=== PATIENT | male | born 1950 | race Asian ===

== ENCOUNTER 2016-06-29 10:50 | Emergency (ER) | payer MEDICARE, OTHER ==
[~2016-06-29] VITALS: Ht 162.6 cm; Wt 63.6 kg
[~2016-06-29 10:50] MED LIST: ALLO100T PO; ASPI81 PO; FERR-89 PO; HYDR-3965 PO; INSU100V12 SQ; LOSA50TA37 PO; SIMV-259 PO
[2016-06-29 11:05] LABS: GLUCOSE,POINT OF CARE 83 MG/DL (70-110)
[2016-06-29 12:51] LABS: EOSINOPHILS % (AUTO) 5.8 % (1.0-6.0); HEMATOCRIT 29.3 % (41-53); HEMOGLOBIN 9.7 g/dL (13.5-17.5); LYMPHOCYTES # (AUTO) 1.4 K/uL (1.0-4.8); LYMPHOCYTES % (AUTO) 21.6 % (22.0-44.0); MEAN CORPUSCULAR HEMOGLOBIN 31.4 pg (26.0-34.0); MEAN CORPUSCULAR VOLUME 95 fL (80-100); MONOCYTES # (AUTO) 0.6 K/uL (0.1-1.0); MONOCYTES % (AUTO) 9.1 % (2.0-9.0); NEUTROPHILS # (AUTO) 4.1 K/uL (1.8-7.7); NEUTROPHILS % (AUTO) 62.5 % (40.0-70.0); PLATELET COUNT (AUTO) 341 K/uL (150-450); RED BLOOD CELL COUNT(AUTO) 3.09 MIL/uL (4.50-5.90); RED CELL DISTRIBUTION WIDTH 14.5 % (11.5-14.5); WHITE BLOOD COUNT (AUTO) 6.5 K/uL (4.5-11.0)
[2016-06-29 13:01] LABS: CALCIUM, TOTAL 9.3 mg/dL (8.8-10.5); POTASSIUM 4.6 mmol/L (3.5-5.1)
[2016-06-29 13:07] LABS: ALBUMIN 3.3 g/dL (3.4-5.0); BILIRUBIN,TOTAL 0.2 mg/dL (0.1-1.0); TOTAL PROTEIN, SERUM 7.5 g/dL (6.4-8.2)
[2016-06-29] MEDS ORDERED: SODIUM CHLORIDE 0.9% 1,000 ML IV ONE (13:45)
[2016-06-29] MEDS ORDERED: SODIUM CHLORIDE 0.9% 500 ML IV ONE (14:00)
[2016-06-29 14:45] VITALS: BP 131/71
== END 2016-06-29 15:47 | disposition home or self-care (01) ==
LOC: EMS 10:51
DX: J40 Bronchitis, not specified as acute or chronic (principal); E11.9 Type 2 diabetes mellitus without complications; E78.00 Pure hypercholesterolemia, unspecified; I10 Essential (primary) hypertension; Z79.82 Long term (current) use of aspirin
CPT/HCPCS: 36415; 71020; 80053; 82962; 84484; 85025; 93005; 96360; 99285; J7030

== ENCOUNTER 2016-09-25 12:24 | Emergency (ER) | payer OTHER ==
[~2016-09-25] VITALS: Ht 162.6 cm; Wt 63.5 kg
[~2016-09-25 12:24] MED LIST changes: -FERR-89 PO; -HYDR-3965 PO; -SIMV-259 PO; +SIMV10 PO
[2016-09-25 12:42] LABS: GLUCOSE,POINT OF CARE 220 MG/DL (70-110)
[2016-09-25 18:23] VITALS: BP 145/77
== END 2016-09-25 18:28 | disposition home or self-care (01) ==
LOC: EMS 12:32
DX: M76.61 Achilles tendinitis, right leg (principal); E11.9 Type 2 diabetes mellitus without complications; E78.00 Pure hypercholesterolemia, unspecified; I10 Essential (primary) hypertension
CPT/HCPCS: 29540; 82962; 99284

== ENCOUNTER 2018-05-10 08:13 | Emergency (ER) | payer MEDICARE, OTHER ==
[~2018-05-10] VITALS: Ht 162.6 cm; Wt 70.0 kg
[~2018-05-10 08:13] MED LIST changes: -LOSA50TA37 PO; +LOSA50TA64 PO; +SIMV-259 PO; -SIMV10 PO
[2018-05-10 08:34] LABS: GLUCOSE,POINT OF CARE 127 MG/DL (70-110)
[2018-05-10] MEDS: ASPIRIN 81 MG CHEWABLE TABLET PO ONE (08:36)
[2018-05-10] MEDS: NITROGLYCERIN 2% (1 GM=INCH) PACKET TP ONE (08:36)
[2018-05-10 09:24] LABS: BASOPHILS % (AUTO) 0.2 % (0.0-2.0); EOSINOPHILS % (AUTO) 1.2 % (1.0-6.0); HEMATOCRIT 33.2 % (41-53); HEMOGLOBIN 11.3 g/dL (13.5-17.5); LYMPHOCYTES # (AUTO) 0.6 K/uL (1.0-4.8); LYMPHOCYTES % (AUTO) 8.1 % (22.0-44.0); MEAN CORPUSCULAR HEMOGLOBIN 32.7 pg (26.0-34.0); MEAN CORPUSCULAR VOLUME 96 fL (80-100); MONOCYTES # (AUTO) 0.7 K/uL (0.1-1.0); MONOCYTES % (AUTO) 9.5 % (2.0-9.0); NEUTROPHILS # (AUTO) 6.2 K/uL (1.8-7.7); PLATELET COUNT (AUTO) 229 K/uL (150-450); RED BLOOD CELL COUNT(AUTO) 3.46 MIL/uL (4.50-5.90); RED CELL DISTRIBUTION WIDTH 14.6 % (11.5-14.5)
[2018-05-10 09:33] LABS: CALCIUM, TOTAL 8.9 mg/dL (8.8-10.5); CREATININE 10.16 mg/dL (0.60-1.30); POTASSIUM 4.4 mmol/L (3.5-5.1)
[2018-05-10 09:57] LABS: ALBUMIN 2.3 g/dL (3.4-5.0); BILIRUBIN,TOTAL 0.4 mg/dL (0.1-1.0); TOTAL PROTEIN, SERUM 6.7 g/dL (6.4-8.2)
[2018-05-10 13:13] VITALS: BP 148/62
== END 2018-05-10 15:25 | disposition home or self-care (01) ==
LOC: EMS 08:14
DX: I47.1 Supraventricular tachycardia (principal); I12.0 Hypertensive chronic kidney disease with stage 5 chronic kidney disease or end stage renal disease; E11.22 Type 2 diabetes mellitus with diabetic chronic kidney disease; N18.6 End stage renal disease; E78.00 Pure hypercholesterolemia, unspecified; Z99.2 Dependence on renal dialysis; Z79.4 Long term (current) use of insulin; Z87.891 Personal history of nicotine dependence; Z79.82 Long term (current) use of aspirin
CPT/HCPCS: 82948; 93005; 99291

== ENCOUNTER 2019-01-07 10:04 | Inpatient (IN) | payer MEDICARE, OTHER ==
[~2019-01-07] VITALS: Ht 162.6 cm; Wt 57.6 kg
[2019-01-07] MEDS ORDERED: ISOS20TA7 PO (10:20)
[2019-01-07 10:29] LABS: GLUCOSE,POINT OF CARE 161 MG/DL (70-110)
[2019-01-07 11:14] LABS: BASOPHILS % (AUTO) 0.4 % (0.0-2.0); EOSINOPHILS % (AUTO) 31.5 % (1.0-6.0); HEMATOCRIT 29.6 % (41-53); HEMOGLOBIN 9.8 g/dL (13.5-17.5); LYMPHOCYTES # (AUTO) 0.7 K/uL (1.0-4.8); LYMPHOCYTES % (AUTO) 11.3 % (22.0-44.0); MEAN CORPUSCULAR HEMOGLOBIN 32.7 pg (26.0-34.0); MEAN CORPUSCULAR VOLUME 99 fL (80-100); MONOCYTES # (AUTO) 0.5 K/uL (0.1-1.0); MONOCYTES % (AUTO) 7.6 % (2.0-9.0); NEUTROPHILS # (AUTO) 3.1 K/uL (1.8-7.7); NEUTROPHILS % (AUTO) 49.2 % (40.0-70.0); RED CELL DISTRIBUTION WIDTH 18.7 % (11.5-14.5)
[2019-01-07 11:23] LABS: CALCIUM, TOTAL 8.4 mg/dL (8.8-10.5); CREATININE 6.2 mg/dL (0.60-1.30); POTASSIUM 4.6 mmol/L (3.5-5.1)
[2019-01-07 11:29] LABS: BILIRUBIN,TOTAL 0.7 mg/dL (0.1-1.0); TOTAL PROTEIN, SERUM 7.7 g/dL (6.4-8.2)
[2019-01-07 11:33] LABS: INR 1.1 (0.9-1.1); PROTHROMBIN TIME 11.1 SEC (9.4-11.6)
[2019-01-07 11:46] LABS: PLATELET COUNT (AUTO) 95 K/uL (150-450)
[2019-01-07] MEDS ORDERED: IOVERSOL 350 MG/ML 100 ML VIAL ONE (12:35)
[2019-01-07] MEDS ORDERED: ISOS30TA6 PO (12:44)
[2019-01-07] MEDS ORDERED: ATOR20TA65 PO (12:44)
[2019-01-07] MEDS ORDERED: INSLAN SQ (12:44)
[2019-01-07] MEDS ORDERED: ACETAMINOPHEN 325 MG TABLET PO PRN ×2 (12:45→17:45)
[2019-01-07] MEDS ORDERED: 0.9% SODIUM CHLORIDE 10 ML SYRINGE IVP PRN (12:45)
[2019-01-07] MEDS ORDERED: ONDANSETRON HCL 4 MG/2 ML VIAL IVP PRN ×2 (12:45→17:45)
[2019-01-07 14:52] VITALS: BP 190/75
[2019-01-07] MEDS ORDERED: ISOSORBIDE MONONITRATE 60 MG ER TABLET PO SCH (15:30)
[2019-01-07] MEDS ORDERED: LOSARTAN POTASSIUM 50 MG TABLET PO SCH (15:30)
[2019-01-07 15:52] VITALS: BP 167/81
[2019-01-07] MEDS ORDERED: ZOLPIDEM TARTRATE 5 MG TABLET PO PRN (17:45)
[2019-01-07] MEDS ORDERED: INSULIN GLARGINE,HUM.REC.ANLOG 100 UNITS/ML SQ SCH (17:45)
[2019-01-07] MEDS ORDERED: ALBUTEROL SULFATE 2.5 MG/0.5 ML NEB SOLUTION NEB PRN (17:45)
[2019-01-07] MEDS ORDERED: IPRATROPIUM BROMIDE 0.5 MG/2.5 ML NEB SOLUTION NEB PRN (17:45)
[2019-01-07] MEDS: MINERAL OIL/PETROLATUM 120 GM CREAM TP SCH (17:45)
[2019-01-07] MEDS: PANTOPRAZOLE SODIUM 40 MG DR TABLET PO SCH (18:32)
[2019-01-07] MEDS: BENZONATATE 100 MG CAPSULE PO SCH (18:32)
[2019-01-07] MEDS: INSULIN GLARGINE,HUM.REC.ANLOG 100 UNITS/ML SQ SCH (18:33)
[2019-01-07] MEDS: HYDROCODONE/CHLORPHEN POLIS 10-8 MG/5 ML ORAL.SYG PO PRN (18:57)
[2019-01-07 19:29] VITALS: BP 172/70
[2019-01-07] MEDS: HEPARIN SODIUM,PORCINE 5,000 UNITS/ML VIAL SQ SCH (20:55)
[2019-01-07] MEDS: DOCUSATE SODIUM 250 MG CAPSULE PO SCH (20:56)
[2019-01-07] MEDS: ATORVASTATIN CALCIUM 20 MG TABLET PO SCH (20:56)
[2019-01-07] MEDS: 0.9% SODIUM CHLORIDE 10 ML SYRINGE IVP PRN (20:58)
[2019-01-07] MEDS ORDERED: ATORVASTATIN CALCIUM 20 MG TABLET PO SCH (21:00)
[2019-01-07] MEDS: LOSARTAN POTASSIUM 50 MG TABLET PO SCH (21:00)
[2019-01-07 22:35] LABS: GLUCOMETER DEV NAME(LOC) 5N.2; GLUCOSE,POINT OF CARE 140 MG/DL (70-110)
[2019-01-07 22:35] LABS: GLUCOMETER DEV NAME(LOC) 5N.2; GLUCOSE,POINT OF CARE 139 MG/DL (70-110)
[2019-01-07 23:47] VITALS: BP 150/73
[2019-01-08] MEDS: MINERAL OIL/PETROLATUM 120 GM CREAM TP SCH ×4 (00:42→22:58)
[2019-01-08] MEDS: BENZONATATE 100 MG CAPSULE PO SCH ×4 (00:42→22:59)
[2019-01-08] MEDS: DEXTROSE 50%-WATER 25 GM/50 ML SYRINGE IVP PRN (01:17)
[2019-01-08] MEDS: 0.9% SODIUM CHLORIDE 10 ML SYRINGE IVP PRN (01:18)
[2019-01-08 04:28] VITALS: BP 173/71
[2019-01-08] MEDS: PANTOPRAZOLE SODIUM 40 MG DR TABLET PO SCH (06:06)
[2019-01-08 07:35] VITALS: BP 148/56
[2019-01-08] MEDS: ASPIRIN 81 MG CHEWABLE TABLET PO SCH (08:13)
[2019-01-08] MEDS: INSULIN GLARGINE,HUM.REC.ANLOG 100 UNITS/ML SQ SCH (08:13)
[2019-01-08] MEDS: ISOSORBIDE MONONITRATE 60 MG ER TABLET PO SCH (08:14)
[2019-01-08] MEDS: DOCUSATE SODIUM 250 MG CAPSULE PO SCH ×3 (08:14→19:48)
[2019-01-08] MEDS: HEPARIN SODIUM,PORCINE 5,000 UNITS/ML VIAL SQ SCH ×2 (08:15→19:48)
[2019-01-08] MEDS ORDERED: LOSARTAN POTASSIUM 50 MG TABLET PO SCH (09:00)
[2019-01-08 11:50] VITALS: BP 144/66
[2019-01-08 12:06] LABS: GLUCOMETER DEV NAME(LOC) 5S.1; GLUCOSE,POINT OF CARE 183 MG/DL (70-110)
[2019-01-08 12:06] LABS: GLUCOMETER DEV NAME(LOC) 5S.1; GLUCOSE,POINT OF CARE 64 MG/DL (70-110)
[2019-01-08 12:06] LABS: GLUCOMETER DEV NAME(LOC) 5S.1; GLUCOSE,POINT OF CARE 56 MG/DL (70-110)
[2019-01-08 12:06] LABS: GLUCOMETER DEV NAME(LOC) 5S.1; GLUCOSE,POINT OF CARE 70 MG/DL (70-110)
[2019-01-08 14:35] LABS: GLUCOMETER DEV NAME(LOC) 5N.2; GLUCOSE,POINT OF CARE 79 MG/DL (70-110)
[2019-01-08 15:10] LABS: HEMATOCRIT 28.2 % (41-53); HEMOGLOBIN 9.2 g/dL (13.5-17.5); MEAN CORPUSCULAR HEMOGLOBIN 32.6 pg (26.0-34.0); MEAN CORPUSCULAR HGB CONC 32.6 G/dL (31.0-37.0); MEAN CORPUSCULAR VOLUME 100 fL (80-100); PLATELET COUNT (AUTO) 101 K/uL (150-450); RED BLOOD CELL COUNT(AUTO) 2.83 MIL/uL (4.50-5.90); RED CELL DISTRIBUTION WIDTH 18.1 % (11.5-14.5)
[2019-01-08] MEDS ORDERED: SODIUM CHLORIDE 0.9% 500 ML IV ONE (15:17)
[2019-01-08 15:23] LABS: HEMOGLOBIN A1C 5.4 % (4.5-6.2)
[2019-01-08 15:33] LABS: CHOL/HDL RATIO 1.8 (4.2-7.3); THYROID STIMULATING HORMONE 3.12 uIU/mL (0.36-3.74)
[2019-01-08 15:35] LABS: PROTHROMBIN TIME 10.8 SEC (9.4-11.6)
[2019-01-08 16:13] LABS: BAND NEUTROPHILS % (MANUAL) 3 % (0-5); BASOPHILS % (MANUAL) 1 % (0-2); EOSINOPHILS % (MANUAL) 24 % (1-6); LYMPHOCYTES % (MANUAL) 11 % (22-44); MONOCYTES % (MANUAL) 4 % (2-9); REACTIVE LYMPHOCYTES 5 % (0-0); SEGMENTED NEUTROPHILS % 52 % (40-70)
[2019-01-08 16:26] LABS: PLATELET MORPHOLOGY COMMENT DECREASED
[2019-01-08 16:30] VITALS: BP 155/62
[2019-01-08] MEDS: HYDROCODONE/CHLORPHEN POLIS 10-8 MG/5 ML ORAL.SYG PO PRN ×2 (16:50→22:59)
[2019-01-08 19:15] LABS: GLUCOMETER DEV NAME(LOC) 5N.1; GLUCOSE,POINT OF CARE 106 MG/DL (70-110)
[2019-01-08] MEDS: LOSARTAN POTASSIUM 50 MG TABLET PO SCH (19:48)
[2019-01-08] MEDS: ATORVASTATIN CALCIUM 20 MG TABLET PO SCH (19:48)
[2019-01-08 19:51] VITALS: BP 159/76
[2019-01-08 20:25] LABS: GLUCOMETER DEV NAME(LOC) 5N.2; GLUCOSE,POINT OF CARE 106 MG/DL (70-110)
[2019-01-08 23:32] VITALS: BP 148/62
[2019-01-09] VITALS (9 sets, daily range): BP systolic 111–162; BP diastolic 57–72
[2019-01-09 00:05] LABS: GLUCOMETER DEV NAME(LOC) 5S.1; GLUCOSE,POINT OF CARE 121 MG/DL (70-110)
[2019-01-09] MEDS: PANTOPRAZOLE SODIUM 40 MG DR TABLET PO SCH (05:45)
[2019-01-09] MEDS: ISOSORBIDE MONONITRATE 60 MG ER TABLET PO SCH (08:16)
[2019-01-09] MEDS: ASPIRIN 81 MG CHEWABLE TABLET PO SCH (08:16)
[2019-01-09] MEDS: BENZONATATE 100 MG CAPSULE PO SCH ×3 (08:16→23:39)
[2019-01-09] MEDS: DOCUSATE SODIUM 250 MG CAPSULE PO SCH ×3 (08:16→19:53)
[2019-01-09] MEDS: MINERAL OIL/PETROLATUM 120 GM CREAM TP SCH ×3 (08:17→23:39)
[2019-01-09] MEDS: HEPARIN SODIUM,PORCINE 5,000 UNITS/ML VIAL SQ SCH ×2 (08:17→19:53)
[2019-01-09] MEDS: INSULIN GLARGINE,HUM.REC.ANLOG 100 UNITS/ML SQ SCH (08:19)
[2019-01-09 08:35] LABS: BILIRUBIN,TOTAL 0.7 mg/dL (0.1-1.0); CALCIUM, TOTAL 8.9 mg/dL (8.8-10.5); CREATININE 6.34 mg/dL (0.60-1.30); POTASSIUM 5.3 mmol/L (3.5-5.1); TOTAL PROTEIN, SERUM 7.8 g/dL (6.4-8.2)
[2019-01-09 11:56] LABS: GLUCOMETER DEV NAME(LOC) 5N.2; GLUCOSE,POINT OF CARE 77 MG/DL (70-110)
[2019-01-09 12:13] LABS: SPECIMENTYPE,BODY FLUID THORACENTESIS
[2019-01-09] MEDS: HYDROCODONE/CHLORPHEN POLIS 10-8 MG/5 ML ORAL.SYG PO PRN ×2 (12:27→18:28)
[2019-01-09] MEDS ORDERED: HYDROCODONE/CHLORPHEN POLIS 10-8 MG/5 ML ORAL.SYG PO ONE (12:45)
[2019-01-09 13:13] LABS: PH, BODY FLUID 7
[2019-01-09 13:39] LABS: APPEARANCE,SPUN,BODY FLUID CLEAR (CLEAR); APPEARANCE,UNSPUN,BODY FLUID BLOODY (CLEAR)
[2019-01-09 13:40] LABS: COLOR,BODY FLUID RED (LT YELLOW); EOSINOPHILS,BF (ANAL) 31 %; LYMPHOCYTES,BODY FLUID 13 %; MONOCYTES,BODY FLUID 49 %; NEUTROPHILS,BODY FLUID 7 %; TOTAL VOLUME,BODY FLUID 1100 mL; WBC, BODY FLUID 44 /cu. mm.
[2019-01-09 13:41] LABS: BASOPHILS,BODY FLUID 0 %
[2019-01-09] MEDS: MORPHINE SULFATE 2 MG/ML SYRINGE IVP PRN (14:46)
[2019-01-09] MEDS: LOSARTAN POTASSIUM 50 MG TABLET PO SCH (19:52)
[2019-01-09] MEDS: ATORVASTATIN CALCIUM 20 MG TABLET PO SCH (19:52)
[2019-01-09] MEDS: INSULIN LISPRO 100 UNITS/ML SQ PRN (21:06)
[2019-01-09 22:05] LABS: GLUCOMETER DEV NAME(LOC) 5S.2A; GLUCOSE,POINT OF CARE 95 MG/DL (70-110)
[2019-01-09 22:06] LABS: GLUCOMETER DEV NAME(LOC) 5S.2A; GLUCOSE,POINT OF CARE 112 MG/DL (70-110)
[2019-01-09 23:25] LABS: GLUCOMETER DEV NAME(LOC) 5N.1; GLUCOSE,POINT OF CARE 104 MG/DL (70-110)
[2019-01-09] MEDS: HYDROCODONE/ACETAMINOPHEN 5-325 MG TABLET PO PRN (23:39)
[2019-01-09] MEDS: HydrALAZINE HCL 20 MG/ML VIAL IVP PRN (23:39)
[2019-01-10 00:30] LABS: GLUCOMETER DEV NAME(LOC) 5N.2; GLUCOSE,POINT OF CARE 131 MG/DL (70-110)
[2019-01-10 04:42] VITALS: BP 148/67
[2019-01-10] MEDS: INSULIN LISPRO 100 UNITS/ML SQ PRN (06:05)
[2019-01-10] MEDS: PANTOPRAZOLE SODIUM 40 MG DR TABLET PO SCH (06:06)
[2019-01-10 06:44] LABS: ALBUMIN 2.8 g/dL (3.4-5.0); BILIRUBIN,TOTAL 0.6 mg/dL (0.1-1.0); CALCIUM, TOTAL 8.9 mg/dL (8.8-10.5); CREATININE 8.02 mg/dL (0.60-1.30); POTASSIUM 5.7 mmol/L (3.5-5.1); TOTAL PROTEIN, SERUM 7.3 g/dL (6.4-8.2)
[2019-01-10 07:50] VITALS: BP 178/73
[2019-01-10] MEDS: DOCUSATE SODIUM 250 MG CAPSULE PO SCH ×3 (07:52→20:28)
[2019-01-10] MEDS: BENZONATATE 100 MG CAPSULE PO SCH ×3 (07:52→23:51)
[2019-01-10] MEDS: ASPIRIN 81 MG CHEWABLE TABLET PO SCH (07:53)
[2019-01-10] MEDS: ISOSORBIDE MONONITRATE 60 MG ER TABLET PO SCH (07:53)
[2019-01-10] MEDS: HEPARIN SODIUM,PORCINE 5,000 UNITS/ML VIAL SQ SCH ×2 (07:53→20:29)
[2019-01-10] MEDS: MINERAL OIL/PETROLATUM 120 GM CREAM TP SCH ×3 (07:55→23:51)
[2019-01-10] MEDS: EPOETIN ALFA 10,000 UNITS/ML 2 ML VIAL SQ SCH (07:55)
[2019-01-10] MEDS: INSULIN GLARGINE,HUM.REC.ANLOG 100 UNITS/ML SQ SCH (07:57)
[2019-01-10 16:05] VITALS: BP 152/60
[2019-01-10] MEDS: HYDROCODONE/CHLORPHEN POLIS 10-8 MG/5 ML ORAL.SYG PO PRN (16:42)
[2019-01-10 16:49] LABS: POTASSIUM 4.7 mmol/L (3.5-5.1)
[2019-01-10 19:50] VITALS: BP 142/63
[2019-01-10 19:55] LABS: GLUCOMETER DEV NAME(LOC) 5S.1; GLUCOSE,POINT OF CARE 79 MG/DL (70-110)
[2019-01-10 19:55] LABS: GLUCOMETER DEV NAME(LOC) 5S.1; GLUCOSE,POINT OF CARE 80 MG/DL (70-110)
[2019-01-10 19:55] LABS: GLUCOMETER DEV NAME(LOC) 5S.1; GLUCOSE,POINT OF CARE 135 MG/DL (70-110)
[2019-01-10 19:55] LABS: GLUCOMETER DEV NAME(LOC) 5S.1; GLUCOSE,POINT OF CARE 69 MG/DL (70-110)
[2019-01-10] MEDS: ATORVASTATIN CALCIUM 20 MG TABLET PO SCH (20:28)
[2019-01-10] MEDS: LOSARTAN POTASSIUM 50 MG TABLET PO SCH (20:28)
[2019-01-10 23:45] VITALS: BP 144/64
[2019-01-11 03:00] LABS: GLUCOMETER DEV NAME(LOC) 5N.1; GLUCOSE,POINT OF CARE 147 MG/DL (70-110)
[2019-01-11 03:43] VITALS: BP 138/67
[2019-01-11] MEDS: HYDROCODONE/CHLORPHEN POLIS 10-8 MG/5 ML ORAL.SYG PO PRN (03:48)
[2019-01-11] MEDS: PANTOPRAZOLE SODIUM 40 MG DR TABLET PO SCH ×3 (06:45→09:12)
[2019-01-11 07:52] VITALS: BP 166/65
[2019-01-11 09:04] LABS: ALBUMIN 2.9 g/dL (3.4-5.0); BILIRUBIN,TOTAL 0.6 mg/dL (0.1-1.0); CALCIUM, TOTAL 9.1 mg/dL (8.8-10.5); CREATININE 5.72 mg/dL (0.60-1.30); POTASSIUM 4.8 mmol/L (3.5-5.1); TOTAL PROTEIN, SERUM 7.9 g/dL (6.4-8.2)
[2019-01-11] MEDS: DOCUSATE SODIUM 250 MG CAPSULE PO SCH ×3 (09:10→20:18)
[2019-01-11] MEDS: HydrALAZINE HCL 20 MG/ML VIAL IVP PRN (09:11)
[2019-01-11] MEDS: ISOSORBIDE MONONITRATE 60 MG ER TABLET PO SCH (09:13)
[2019-01-11] MEDS: ASPIRIN 81 MG CHEWABLE TABLET PO SCH (09:13)
[2019-01-11] MEDS: MINERAL OIL/PETROLATUM 120 GM CREAM TP SCH ×3 (09:14→23:27)
[2019-01-11] MEDS: HEPARIN SODIUM,PORCINE 5,000 UNITS/ML VIAL SQ SCH ×2 (09:14→20:18)
[2019-01-11] MEDS: BENZONATATE 100 MG CAPSULE PO SCH ×3 (09:18→23:26)
[2019-01-11] MEDS: INSULIN GLARGINE,HUM.REC.ANLOG 100 UNITS/ML SQ SCH (09:25)
[2019-01-11 12:15] VITALS: BP 155/68
[2019-01-11 15:15] LABS: GLUCOMETER DEV NAME(LOC) 5N.2; GLUCOSE,POINT OF CARE 108 MG/DL (70-110)
[2019-01-11 15:48] VITALS: BP 154/59
[2019-01-11 18:50] LABS: GLUCOMETER DEV NAME(LOC) 5S.1; GLUCOSE,POINT OF CARE 103 MG/DL (70-110)
[2019-01-11 20:10] VITALS: BP 154/71
[2019-01-11] MEDS: ATORVASTATIN CALCIUM 20 MG TABLET PO SCH (20:18)
[2019-01-11] MEDS: LOSARTAN POTASSIUM 50 MG TABLET PO SCH (20:18)
[2019-01-11] MEDS: INSULIN LISPRO 100 UNITS/ML SQ PRN (20:49)
[2019-01-12] VITALS (7 sets, daily range): BP systolic 137–174; BP diastolic 60–77
[2019-01-12 05:51] LABS: GLUCOMETER DEV NAME(LOC) 5N.2; GLUCOSE,POINT OF CARE 84 MG/DL (70-110)
[2019-01-12 05:52] LABS: GLUCOMETER DEV NAME(LOC) 5N.1; GLUCOSE,POINT OF CARE 118 MG/DL (70-110)
[2019-01-12] MEDS: HydrALAZINE HCL 20 MG/ML VIAL IVP PRN ×2 (06:16→23:31)
[2019-01-12] MEDS: DEXTROSE 50%-WATER 25 GM/50 ML SYRINGE IVP PRN (06:16)
[2019-01-12 07:00] LABS: GLUCOMETER DEV NAME(LOC) 5N.2; GLUCOSE,POINT OF CARE 51 MG/DL (70-110)
[2019-01-12 08:00] LABS: ALBUMIN 2.9 g/dL (3.4-5.0); BILIRUBIN,TOTAL 0.6 mg/dL (0.1-1.0); CREATININE 7.32 mg/dL (0.60-1.30); POTASSIUM 5.5 mmol/L (3.5-5.1); TOTAL PROTEIN, SERUM 7.9 g/dL (6.4-8.2)
[2019-01-12] MEDS: MINERAL OIL/PETROLATUM 120 GM CREAM TP SCH ×3 (08:24→23:30)
[2019-01-12] MEDS: DOCUSATE SODIUM 250 MG CAPSULE PO SCH ×3 (08:24→20:36)
[2019-01-12] MEDS: ASPIRIN 81 MG CHEWABLE TABLET PO SCH (08:24)
[2019-01-12] MEDS: ISOSORBIDE MONONITRATE 60 MG ER TABLET PO SCH (08:24)
[2019-01-12] MEDS: BENZONATATE 100 MG CAPSULE PO SCH ×3 (08:24→23:30)
[2019-01-12] MEDS: HEPARIN SODIUM,PORCINE 5,000 UNITS/ML VIAL SQ SCH ×2 (08:25→20:37)
[2019-01-12] MEDS: INSULIN GLARGINE,HUM.REC.ANLOG 100 UNITS/ML SQ SCH (08:34)
[2019-01-12] MEDS ORDERED: SODIUM POLYSTYRENE SULFONATE 15 GM/60 ML SUSPENSION BOTTLE PO ONE (10:15)
[2019-01-12] MEDS: LOSARTAN POTASSIUM 50 MG TABLET PO SCH (20:36)
[2019-01-12] MEDS: ATORVASTATIN CALCIUM 20 MG TABLET PO SCH (20:36)
[2019-01-12] MEDS: INSULIN LISPRO 100 UNITS/ML SQ PRN (21:51)
[2019-01-13 04:25] VITALS: BP 163/68
[2019-01-13] MEDS: HydrALAZINE HCL 20 MG/ML VIAL IVP PRN (06:03)
[2019-01-13] MEDS: PANTOPRAZOLE SODIUM 40 MG DR TABLET PO SCH (06:03)
[2019-01-13] MEDS: INSULIN LISPRO 100 UNITS/ML SQ PRN ×2 (06:07→17:53)
[2019-01-13 06:42] LABS: BASOPHILS % (AUTO) 0.2 % (0.0-2.0); HEMATOCRIT 24.7 % (41-53); HEMOGLOBIN 8.4 g/dL (13.5-17.5); LYMPHOCYTES # (AUTO) 0.8 K/uL (1.0-4.8); LYMPHOCYTES % (AUTO) 8.3 % (22.0-44.0); MEAN CORPUSCULAR HEMOGLOBIN 33.7 pg (26.0-34.0); MEAN CORPUSCULAR VOLUME 99 fL (80-100); MONOCYTES # (AUTO) 0.7 K/uL (0.1-1.0); NEUTROPHILS # (AUTO) 3.7 K/uL (1.8-7.7); NEUTROPHILS % (AUTO) 39.9 % (40.0-70.0); PLATELET COUNT (AUTO) 148 K/uL (150-450); RED BLOOD CELL COUNT(AUTO) 2.49 MIL/uL (4.50-5.90); RED CELL DISTRIBUTION WIDTH 18.1 % (11.5-14.5)
[2019-01-13 07:14] LABS: EOSINOPHILS % (AUTO) 43.6 % (1.0-6.0)
[2019-01-13 07:33] LABS: ALBUMIN 2.4 g/dL (3.4-5.0); BILIRUBIN,TOTAL 0.5 mg/dL (0.1-1.0); CALCIUM, TOTAL 8.8 mg/dL (8.8-10.5); CREATININE 8.65 mg/dL (0.60-1.30); POTASSIUM 5.4 mmol/L (3.5-5.1); TOTAL PROTEIN, SERUM 6.8 g/dL (6.4-8.2)
[2019-01-13 07:37] VITALS: BP 161/70
[2019-01-13] MEDS: MINERAL OIL/PETROLATUM 120 GM CREAM TP SCH ×2 (09:09→17:32)
[2019-01-13] MEDS: BENZONATATE 100 MG CAPSULE PO SCH ×2 (09:09→17:32)
[2019-01-13] MEDS: ASPIRIN 81 MG CHEWABLE TABLET PO SCH (09:10)
[2019-01-13] MEDS: DOCUSATE SODIUM 250 MG CAPSULE PO SCH ×3 (09:10→20:16)
[2019-01-13] MEDS: HEPARIN SODIUM,PORCINE 5,000 UNITS/ML VIAL SQ SCH ×2 (09:11→20:16)
[2019-01-13] MEDS: ISOSORBIDE MONONITRATE 60 MG ER TABLET PO SCH (09:17)
[2019-01-13] MEDS: EPOETIN ALFA 10,000 UNITS/ML 2 ML VIAL SQ SCH (09:18)
[2019-01-13] MEDS: INSULIN GLARGINE,HUM.REC.ANLOG 100 UNITS/ML SQ SCH (09:23)
[2019-01-13] MEDS ORDERED: SODIUM CHLORIDE 0.9% 1,000 ML IV ONE (09:35)
[2019-01-13 11:57] VITALS: BP 150/80
[2019-01-13 12:07] LABS: GLUCOMETER DEV NAME(LOC) 5S.2A; GLUCOSE,POINT OF CARE 141 MG/DL (70-110)
[2019-01-13 15:11] VITALS: BP 125/72
[2019-01-13 19:50] VITALS: BP 169/74
[2019-01-13] MEDS: LOSARTAN POTASSIUM 50 MG TABLET PO SCH (20:15)
[2019-01-13] MEDS: ATORVASTATIN CALCIUM 20 MG TABLET PO SCH (20:16)
[2019-01-13 20:17] LABS: GLUCOMETER DEV NAME(LOC) 5S.1; GLUCOSE,POINT OF CARE 71 MG/DL (70-110)
[2019-01-13] MEDS: HYDROCODONE/CHLORPHEN POLIS 10-8 MG/5 ML ORAL.SYG PO PRN (21:19)
[2019-01-13 23:00] VITALS: BP 146/64
[2019-01-14] VITALS (12 sets, daily range): BP systolic 113–161; BP diastolic 50–78
[2019-01-14] MEDS: BENZONATATE 100 MG CAPSULE PO SCH ×4 (00:08→23:44)
[2019-01-14] MEDS: MINERAL OIL/PETROLATUM 120 GM CREAM TP SCH ×4 (00:08→23:47)
[2019-01-14 06:15] LABS: GLUCOMETER DEV NAME(LOC) 5N.2; GLUCOSE,POINT OF CARE 116 MG/DL (70-110)
[2019-01-14 06:16] LABS: GLUCOMETER DEV NAME(LOC) 5N.2; GLUCOSE,POINT OF CARE 107 MG/DL (70-110)
[2019-01-14] MEDS: PANTOPRAZOLE SODIUM 40 MG DR TABLET PO SCH (06:21)
[2019-01-14] MEDS: HEPARIN SODIUM,PORCINE 5,000 UNITS/ML VIAL SQ SCH ×2 (09:00→20:35)
[2019-01-14] MEDS: ASPIRIN 81 MG CHEWABLE TABLET PO SCH (09:00)
[2019-01-14] MEDS: INSULIN GLARGINE,HUM.REC.ANLOG 100 UNITS/ML SQ SCH (09:00)
[2019-01-14] MEDS: DOCUSATE SODIUM 250 MG CAPSULE PO SCH ×3 (09:00→20:35)
[2019-01-14 09:20] LABS: BASOPHILS % (AUTO) 0.4 % (0.0-2.0); HEMATOCRIT 29.9 % (41-53); HEMOGLOBIN 9.8 g/dL (13.5-17.5); LYMPHOCYTES # (AUTO) 0.6 K/uL (1.0-4.8); LYMPHOCYTES % (AUTO) 6.3 % (22.0-44.0); MEAN CORPUSCULAR HEMOGLOBIN 32.8 pg (26.0-34.0); MEAN CORPUSCULAR HGB CONC 32.7 G/dL (31.0-37.0); MEAN CORPUSCULAR VOLUME 100 fL (80-100); MONOCYTES # (AUTO) 0.8 K/uL (0.1-1.0); MONOCYTES % (AUTO) 9.5 % (2.0-9.0); NEUTROPHILS # (AUTO) 3.5 K/uL (1.8-7.7); NEUTROPHILS % (AUTO) 39.6 % (40.0-70.0); PLATELET COUNT (AUTO) 187 K/uL (150-450); RED BLOOD CELL COUNT(AUTO) 2.97 MIL/uL (4.50-5.90); RED CELL DISTRIBUTION WIDTH 18.1 % (11.5-14.5)
[2019-01-14 09:22] LABS: EOSINOPHILS % (AUTO) 44.2 % (1.0-6.0)
[2019-01-14 09:33] LABS: CALCIUM, TOTAL 8.5 mg/dL (8.8-10.5); CREATININE 5.9 mg/dL (0.60-1.30); POTASSIUM 4.2 mmol/L (3.5-5.1)
[2019-01-14 09:38] LABS: ALBUMIN 2.5 g/dL (3.4-5.0); BILIRUBIN,TOTAL 0.6 mg/dL (0.1-1.0); TOTAL PROTEIN, SERUM 7.2 g/dL (6.4-8.2)
[2019-01-14 10:02] LABS: INR 1.1 (0.9-1.1)
[2019-01-14 11:56] LABS: GLUCOMETER DEV NAME(LOC) 5S.2A; GLUCOSE,POINT OF CARE 156 MG/DL (70-110)
[2019-01-14 11:56] LABS: GLUCOMETER DEV NAME(LOC) 5S.1; GLUCOSE,POINT OF CARE 101 MG/DL (70-110)
[2019-01-14 11:57] LABS: GLUCOMETER DEV NAME(LOC) 5S.1; GLUCOSE,POINT OF CARE 72 MG/DL (70-110)
[2019-01-14] MEDS ORDERED: DEXTROSE IV ONE (12:30)
[2019-01-14] MEDS ORDERED: SODIUM CHL IV ONE (12:30)
[2019-01-14 12:31] LABS: GLUCOMETER DEV NAME(LOC) 5N.1; GLUCOSE,POINT OF CARE 164 MG/DL (70-110)
[2019-01-14 12:32] LABS: GLUCOMETER DEV NAME(LOC) 5N.1; GLUCOSE,POINT OF CARE 93 MG/DL (70-110)
[2019-01-14 12:32] LABS: GLUCOMETER DEV NAME(LOC) 5N.1; GLUCOSE,POINT OF CARE 75 MG/DL (70-110)
[2019-01-14 12:32] LABS: GLUCOMETER DEV NAME(LOC) 5N.1; GLUCOSE,POINT OF CARE 146 MG/DL (70-110)
[2019-01-14] MEDS ORDERED: SODIUM CHLORIDE 0.9% 1,000 ML IV ONE ×2 (12:53→13:20)
[2019-01-14] MEDS ORDERED: BUPIVACAINE HCL/PF 0.25% 30 ML VIAL ONE (13:16)
[2019-01-14] MEDS ORDERED: SODIUM CHLORIDE 0.9% 100 ML ONE (13:17)
[2019-01-14] MEDS ORDERED: SUGAMMADEX SODIUM 200 MG/2 ML VIAL IVP ONE (13:18)
[2019-01-14] MEDS ORDERED: DEXTROSE 5%-0.45% SODIUM CHL 1,000 ML IV ONE (13:27)
[2019-01-14 13:35] LABS: GLUCOMETER DEV NAME(LOC) SDS.; GLUCOSE,POINT OF CARE 78 MG/DL (70-110)
[2019-01-14] MEDS ORDERED: DOXYCYCLINE HYCLATE 100 MG/VIAL IPL ONE (13:45)
[2019-01-14 13:59] LABS: ABG BASE EXCESS -1.8 mmol/L (-2.0-3.0); ABG CARBOXYHEMOGLOBIN 1.5 % (0.0-1.5); ABG HCO3 23.1 mmol/L (22.0-26.0); ABG METHEMOGLOBIN 0.3 % (0.0-1.5); ABG OXYGEN CONTENT 13.2 mL/dL (15.0-23.0); ABG OXYGEN SATURATION 96.7 % (95.0-98.0); ABG PCO2 39 mmHg (35-45); ABG PH 7.395 (7.35-7.450); ABG TOTAL HEMOGLOBIN 9.8 G/dL (12.0-18.0); PO2, ARTERIAL BG 90.4 mmHg (75.0-83.0); SOURCE, BLOOD GAS ARTERIAL; TEMPERATURE, FAHRENHEIT, BG 98.1 FAHREN (96.0-98.6)
[2019-01-14 14:00] LABS: GLUCOMETER DEV NAME(LOC) PACU.; GLUCOSE,POINT OF CARE 97 MG/DL (70-110)
[2019-01-14 14:03] LABS: SITE, BLOOD GAS A LINE
[2019-01-14 14:04] LABS: O2 DEVICE,BLOOD GAS CANNULA (ROOM AIR)
[2019-01-14] MEDS ORDERED: ALBUTEROL SULFATE 2.5 MG/0.5 ML NEB SOLUTION NEB ONE (15:26)
[2019-01-14] MEDS ORDERED: 0.9% SODIUM CHLORIDE 5 ML NEB SOLUTION NEB ONE (15:26)
[2019-01-14 15:56] LABS: ABG A-A DIFF O2 117.8 mmHg (10-20.0); ABG CARBOXYHEMOGLOBIN 1.4 % (0.0-1.5); ABG HCO3 21.1 mmol/L (22.0-26.0); ABG METHEMOGLOBIN 0.3 % (0.0-1.5); ABG OXYGEN CONTENT 13.8 mL/dL (15.0-23.0); ABG OXYGEN SATURATION 99.1 % (95.0-98.0); ABG OXYHEMOGLOBIN 97.4 % (94.0-100.0); ABG PCO2 49 mmHg (35-45); ABG PH 7.286 (7.35-7.450); ABG TOTAL HEMOGLOBIN 9.8 G/dL (12.0-18.0); PO2, ARTERIAL BG 170.2 mmHg (75.0-83.0); SOURCE, BLOOD GAS ARTERIAL; TEMPERATURE, FAHRENHEIT, BG 97.7 FAHREN (96.0-98.6)
[2019-01-14] MEDS ORDERED: ACETAMINOPHEN 1000 MG/ISO-OSM 100 ML IV ONE ×2 (16:10→16:15)
[2019-01-14 16:17] LABS: SITE, BLOOD GAS A LINE
[2019-01-14 16:18] LABS: O2 DEVICE,BLOOD GAS AEROSOL MASK (ROOM AIR)
[2019-01-14] MEDS: ISOSORBIDE MONONITRATE 60 MG ER TABLET PO SCH (17:21)
[2019-01-14] MEDS: HYDROCODONE/CHLORPHEN POLIS 10-8 MG/5 ML ORAL.SYG PO PRN ×2 (17:24→23:48)
[2019-01-14] MEDS: HYDROCODONE/ACETAMINOPHEN 5-325 MG TABLET PO PRN (17:25)
[2019-01-14 19:03] LABS: ABG A-A DIFF O2 54.1 mmHg (10-20.0); ABG BASE EXCESS -5.4 mmol/L (-2.0-3.0); ABG CARBOXYHEMOGLOBIN 1.6 % (0.0-1.5); ABG HCO3 20.2 mmol/L (22.0-26.0); ABG METHEMOGLOBIN 0.3 % (0.0-1.5); ABG OXYGEN CONTENT 12.4 mL/dL (15.0-23.0); ABG OXYGEN SATURATION 96.4 % (95.0-98.0); ABG OXYHEMOGLOBIN 94.6 % (94.0-100.0); ABG PCO2 44 mmHg (35-45); ABG PH 7.301 (7.35-7.450); ABG TOTAL HEMOGLOBIN 9.2 G/dL (12.0-18.0); PO2, ARTERIAL BG 94.2 mmHg (75.0-83.0); SOURCE, BLOOD GAS ARTERIAL; TEMPERATURE, FAHRENHEIT, BG 98.6 FAHREN (96.0-98.6)
[2019-01-14 19:04] LABS: O2 DEVICE,BLOOD GAS CANNULA (ROOM AIR); SITE, BLOOD GAS LFT RADIAL
[2019-01-14] MEDS: ATORVASTATIN CALCIUM 20 MG TABLET PO SCH (20:35)
[2019-01-14] MEDS: LOSARTAN POTASSIUM 50 MG TABLET PO SCH (20:35)
[2019-01-14 20:37] LABS: GLUCOMETER DEV NAME(LOC) 5N.2; GLUCOSE,POINT OF CARE 112 MG/DL (70-110)
[2019-01-14] MEDS: INSULIN LISPRO 100 UNITS/ML SQ PRN (20:41)
[2019-01-15] VITALS (7 sets, daily range): BP systolic 121–151; BP diastolic 56–65
[2019-01-15] MEDS ORDERED: LIDOCAINE/PF 2% 5 ML VIAL IM ONE (05:26)
[2019-01-15] MEDS ORDERED: ROCURONIUM BROMIDE 10 MG/ML 5 ML VIAL IVP ONE (05:26)
[2019-01-15] MEDS ORDERED: PROPOFOL 1% 20 ML VIAL IVP ONE (05:26)
[2019-01-15] MEDS ORDERED: ALBUTEROL SULFATE HFA 90 MCG/PUFF 8 GM INHALER IH ONE (05:28)
[2019-01-15] MEDS: PANTOPRAZOLE SODIUM 40 MG DR TABLET PO SCH (06:12)
[2019-01-15] MEDS: INSULIN LISPRO 100 UNITS/ML SQ PRN ×3 (06:14→22:26)
[2019-01-15 07:48] LABS: BASOPHILS % (AUTO) 0.3 % (0.0-2.0); EOSINOPHILS % (AUTO) 3.2 % (1.0-6.0); HEMATOCRIT 25.7 % (41-53); HEMOGLOBIN 8.5 g/dL (13.5-17.5); LYMPHOCYTES # (AUTO) 0.7 K/uL (1.0-4.8); LYMPHOCYTES % (AUTO) 11.3 % (22.0-44.0); MEAN CORPUSCULAR HEMOGLOBIN 33.2 pg (26.0-34.0); MEAN CORPUSCULAR VOLUME 100 fL (80-100); MONOCYTES # (AUTO) 0.7 K/uL (0.1-1.0); MONOCYTES % (AUTO) 10.9 % (2.0-9.0); NEUTROPHILS # (AUTO) 4.6 K/uL (1.8-7.7); NEUTROPHILS % (AUTO) 74.3 % (40.0-70.0); PLATELET COUNT (AUTO) 180 K/uL (150-450); RED BLOOD CELL COUNT(AUTO) 2.56 MIL/uL (4.50-5.90); RED CELL DISTRIBUTION WIDTH 18.8 % (11.5-14.5)
[2019-01-15] MEDS: MINERAL OIL/PETROLATUM 120 GM CREAM TP SCH ×2 (08:47→16:14)
[2019-01-15] MEDS: BENZONATATE 100 MG CAPSULE PO SCH ×2 (08:47→16:14)
[2019-01-15] MEDS: ASPIRIN 81 MG CHEWABLE TABLET PO SCH (08:47)
[2019-01-15] MEDS: DOCUSATE SODIUM 250 MG CAPSULE PO SCH ×3 (08:48→21:39)
[2019-01-15] MEDS: VITAMIN B COMP/VIT C/FOLIC ACID CAPSULE PO SCH (08:48)
[2019-01-15] MEDS: EPOETIN ALFA 10,000 UNITS/ML 2 ML VIAL SQ SCH (08:49)
[2019-01-15] MEDS: HEPARIN SODIUM,PORCINE 5,000 UNITS/ML VIAL SQ SCH ×2 (08:50→21:37)
[2019-01-15] MEDS: HYDROCODONE/ACETAMINOPHEN 5-325 MG TABLET PO PRN ×2 (08:51→15:10)
[2019-01-15] MEDS: INSULIN GLARGINE,HUM.REC.ANLOG 100 UNITS/ML SQ SCH (08:54)
[2019-01-15] MEDS: ISOSORBIDE MONONITRATE 60 MG ER TABLET PO SCH (09:00)
[2019-01-15 12:01] LABS: CALCIUM, TOTAL 8.8 mg/dL (8.8-10.5); CREATININE 7.2 mg/dL (0.60-1.30); POTASSIUM 5.9 mmol/L (3.5-5.1)
[2019-01-15] MEDS: MORPHINE SULFATE 2 MG/ML SYRINGE IVP PRN (12:32)
[2019-01-15 13:55] LABS: GLUCOMETER DEV NAME(LOC) 5N.2; GLUCOSE,POINT OF CARE 158 MG/DL (70-110)
[2019-01-15 13:55] LABS: GLUCOMETER DEV NAME(LOC) 5N.2; GLUCOSE,POINT OF CARE 158 MG/DL (70-110)
[2019-01-15 13:55] LABS: GLUCOMETER DEV NAME(LOC) 5N.1; GLUCOSE,POINT OF CARE 171 MG/DL (70-110)
[2019-01-15 18:42] LABS: GLUCOMETER DEV NAME(LOC) 5N.2; GLUCOSE,POINT OF CARE 84 MG/DL (70-110)
[2019-01-15 20:23] LABS: GLUCOMETER DEV NAME(LOC) 5S.1; GLUCOSE,POINT OF CARE 125 MG/DL (70-110)
[2019-01-15] MEDS: ATORVASTATIN CALCIUM 20 MG TABLET PO SCH (21:38)
[2019-01-15] MEDS: LOSARTAN POTASSIUM 50 MG TABLET PO SCH (21:39)
[2019-01-16] MEDS: HYDROCODONE/ACETAMINOPHEN 5-325 MG TABLET PO PRN ×2 (01:28→22:33)
[2019-01-16] MEDS: HYDROCODONE/CHLORPHEN POLIS 10-8 MG/5 ML ORAL.SYG PO PRN ×2 (01:47→20:19)
[2019-01-16 05:17] VITALS: BP 152/59
[2019-01-16] MEDS: PANTOPRAZOLE SODIUM 40 MG DR TABLET PO SCH (06:46)
[2019-01-16 08:06] VITALS: BP 130/43
[2019-01-16] MEDS: ASPIRIN 81 MG CHEWABLE TABLET PO SCH (08:11)
[2019-01-16] MEDS: VITAMIN B COMP/VIT C/FOLIC ACID CAPSULE PO SCH (08:11)
[2019-01-16] MEDS: BENZONATATE 100 MG CAPSULE PO SCH ×3 (08:11→17:11)
[2019-01-16] MEDS: ISOSORBIDE MONONITRATE 60 MG ER TABLET PO SCH (08:11)
[2019-01-16] MEDS: DOCUSATE SODIUM 250 MG CAPSULE PO SCH ×3 (08:11→20:14)
[2019-01-16] MEDS: INSULIN GLARGINE,HUM.REC.ANLOG 100 UNITS/ML SQ SCH (08:12)
[2019-01-16] MEDS: HEPARIN SODIUM,PORCINE 5,000 UNITS/ML VIAL SQ SCH ×2 (08:12→20:15)
[2019-01-16] MEDS: MINERAL OIL/PETROLATUM 120 GM CREAM TP SCH ×3 (08:12→16:00)
[2019-01-16 11:05] LABS: GLUCOMETER DEV NAME(LOC) 5S.1; GLUCOSE,POINT OF CARE 166 MG/DL (70-110)
[2019-01-16 11:54] VITALS: BP 134/55
[2019-01-16 15:22] VITALS: BP 150/56
[2019-01-16 20:00] LABS: GLUCOMETER DEV NAME(LOC) 5S.1; GLUCOSE,POINT OF CARE 93 MG/DL (70-110)
[2019-01-16 20:11] VITALS: BP 149/60
[2019-01-16] MEDS: ATORVASTATIN CALCIUM 20 MG TABLET PO SCH (20:14)
[2019-01-16] MEDS: LOSARTAN POTASSIUM 50 MG TABLET PO SCH (20:14)
[2019-01-16 21:11] LABS: GLUCOMETER DEV NAME(LOC) 5N.2; GLUCOSE,POINT OF CARE 91 MG/DL (70-110)
[2019-01-16 21:11] LABS: GLUCOMETER DEV NAME(LOC) 5N.2; GLUCOSE,POINT OF CARE 95 MG/DL (70-110)
[2019-01-16 21:11] LABS: GLUCOMETER DEV NAME(LOC) 5N.2; GLUCOSE,POINT OF CARE 86 MG/DL (70-110)
[2019-01-16] MEDS ORDERED: ACETAMINOPHEN 500 MG TABLET PO PRN (21:45)
[2019-01-16 23:34] VITALS: BP 156/65
[2019-01-17] MEDS: BENZONATATE 100 MG CAPSULE PO SCH ×4 (00:33→23:13)
[2019-01-17 03:55] LABS: GLUCOMETER DEV NAME(LOC) 5N.1; GLUCOSE,POINT OF CARE 137 MG/DL (70-110)
[2019-01-17 05:28] VITALS: BP 132/57
[2019-01-17] MEDS: PANTOPRAZOLE SODIUM 40 MG DR TABLET PO SCH (06:30)
[2019-01-17 06:56] LABS: GLUCOMETER DEV NAME(LOC) 5S.1; GLUCOSE,POINT OF CARE 108 MG/DL (70-110)
[2019-01-17 08:00] VITALS: BP 154/61
[2019-01-17] MEDS: MINERAL OIL/PETROLATUM 120 GM CREAM TP SCH ×3 (08:28→15:10)
[2019-01-17] MEDS: HEPARIN SODIUM,PORCINE 5,000 UNITS/ML VIAL SQ SCH ×2 (08:29→20:17)
[2019-01-17] MEDS: ASPIRIN 81 MG CHEWABLE TABLET PO SCH (08:29)
[2019-01-17] MEDS: DOCUSATE SODIUM 250 MG CAPSULE PO SCH ×3 (08:29→20:17)
[2019-01-17] MEDS: VITAMIN B COMP/VIT C/FOLIC ACID CAPSULE PO SCH (08:29)
[2019-01-17] MEDS: INSULIN GLARGINE,HUM.REC.ANLOG 100 UNITS/ML SQ SCH (08:43)
[2019-01-17] MEDS ORDERED: EPOETIN ALFA 10,000 UNITS/ML VIAL SQ SCH (09:00)
[2019-01-17] MEDS: HYDROCODONE/ACETAMINOPHEN 5-325 MG TABLET PO PRN (09:00)
[2019-01-17] MEDS ORDERED: SODIUM CHLORIDE 0.9% 2,000 ML IV ONE (10:29)
[2019-01-17] MEDS: INSULIN LISPRO 100 UNITS/ML SQ PRN (11:57)
[2019-01-17] MEDS: ISOSORBIDE MONONITRATE 60 MG ER TABLET PO SCH (15:10)
[2019-01-17 15:14] VITALS: BP 146/82
[2019-01-17] MEDS ORDERED: BENZ-51 PO (15:25)
[2019-01-17] MEDS ORDERED: DOCU250C91 PO (15:26)
[2019-01-17 16:49] LABS: ABG A-A DIFF O2 43.3 mmHg (10-20.0); ABG BASE EXCESS 0.3 mmol/L (-2.0-3.0); ABG CARBOXYHEMOGLOBIN 1.9 % (0.0-1.5); ABG HCO3 24.7 mmol/L (22.0-26.0); ABG METHEMOGLOBIN 0.3 % (0.0-1.5); ABG OXYGEN CONTENT 14.7 mL/dL (15.0-23.0); ABG OXYGEN SATURATION 91.3 % (95.0-98.0); ABG OXYHEMOGLOBIN 89.3 % (94.0-100.0); ABG PCO2 40 mmHg (35-45); ABG PH 7.413 (7.35-7.450); ABG TOTAL HEMOGLOBIN 11.7 G/dL (12.0-18.0); PO2, ARTERIAL BG 58.9 mmHg (75.0-83.0); SOURCE, BLOOD GAS ARTERIAL; TEMPERATURE, FAHRENHEIT, BG 98.1 FAHREN (96.0-98.6)
[2019-01-17 16:51] LABS: SITE, BLOOD GAS RT RADIAL
[2019-01-17] MEDS ORDERED: ALBUTEROL SULFATE 2.5 MG/0.5 ML NEB SOLUTION NEB PRN (17:15)
[2019-01-17] MEDS ORDERED: IPRATROPIUM BROMIDE 0.5 MG/2.5 ML NEB SOLUTION NEB PRN (17:15)
[2019-01-17 19:51] VITALS: BP 160/62
[2019-01-17] MEDS: LOSARTAN POTASSIUM 50 MG TABLET PO SCH (20:17)
[2019-01-17] MEDS: ATORVASTATIN CALCIUM 20 MG TABLET PO SCH (20:17)
[2019-01-17 23:08] VITALS: BP 155/67
[2019-01-17 23:31] LABS: GLUCOMETER DEV NAME(LOC) 5N.1; GLUCOSE,POINT OF CARE 103 MG/DL (70-110)
[2019-01-18] VITALS (7 sets, daily range): BP systolic 127–184; BP diastolic 64–85
[2019-01-18] MEDS: PANTOPRAZOLE SODIUM 40 MG DR TABLET PO SCH (05:40)
[2019-01-18 07:12] LABS: GLUCOMETER DEV NAME(LOC) 5N.2; GLUCOSE,POINT OF CARE 137 MG/DL (70-110)
[2019-01-18 07:12] LABS: GLUCOMETER DEV NAME(LOC) 5S.2A; GLUCOSE,POINT OF CARE 97 MG/DL (70-110)
[2019-01-18 07:12] LABS: GLUCOMETER DEV NAME(LOC) 5N.2; GLUCOSE,POINT OF CARE 125 MG/DL (70-110)
[2019-01-18 07:12] LABS: GLUCOMETER DEV NAME(LOC) 5N.2; GLUCOSE,POINT OF CARE 69 MG/DL (70-110)
[2019-01-18] MEDS: BENZONATATE 100 MG CAPSULE PO SCH ×3 (08:24→23:41)
[2019-01-18] MEDS: ASPIRIN 81 MG CHEWABLE TABLET PO SCH (08:24)
[2019-01-18] MEDS: DOCUSATE SODIUM 250 MG CAPSULE PO SCH ×3 (08:24→20:47)
[2019-01-18] MEDS: VITAMIN B COMP/VIT C/FOLIC ACID CAPSULE PO SCH (08:24)
[2019-01-18] MEDS: MINERAL OIL/PETROLATUM 120 GM CREAM TP SCH ×4 (08:24→23:42)
[2019-01-18] MEDS: ISOSORBIDE MONONITRATE 60 MG ER TABLET PO SCH (08:24)
[2019-01-18] MEDS: HEPARIN SODIUM,PORCINE 5,000 UNITS/ML VIAL SQ SCH ×2 (08:25→20:47)
[2019-01-18] MEDS: INSULIN GLARGINE,HUM.REC.ANLOG 100 UNITS/ML SQ SCH (08:25)
[2019-01-18] MEDS ORDERED: LACTULOSE 20 GM/30 ML SOLUTION UDCUP PO PRN (12:00)
[2019-01-18] MEDS: INSULIN LISPRO 100 UNITS/ML SQ PRN ×2 (12:46→20:48)
[2019-01-18 17:58] LABS: GLUCOMETER DEV NAME(LOC) 5S.1; GLUCOSE,POINT OF CARE 98 MG/DL (70-110)
[2019-01-18 17:58] LABS: GLUCOMETER DEV NAME(LOC) 5S.1; GLUCOSE,POINT OF CARE 223 MG/DL (70-110)
[2019-01-18] MEDS: ATORVASTATIN CALCIUM 20 MG TABLET PO SCH (20:47)
[2019-01-18] MEDS: LOSARTAN POTASSIUM 50 MG TABLET PO SCH (20:47)
[2019-01-19 04:06] VITALS: BP 169/68
[2019-01-19] MEDS: PANTOPRAZOLE SODIUM 40 MG DR TABLET PO SCH (05:47)
[2019-01-19 06:30] LABS: GLUCOMETER DEV NAME(LOC) 5N.2; GLUCOSE,POINT OF CARE 165 MG/DL (70-110)
[2019-01-19 06:36] LABS: GLUCOMETER DEV NAME(LOC) 5N.1; GLUCOSE,POINT OF CARE 76 MG/DL (70-110)
[2019-01-19 06:36] LABS: GLUCOMETER DEV NAME(LOC) 5N.1; GLUCOSE,POINT OF CARE 119 MG/DL (70-110)
[2019-01-19 07:36] VITALS: BP 146/60
[2019-01-19] MEDS: ASPIRIN 81 MG CHEWABLE TABLET PO SCH (07:57)
[2019-01-19] MEDS: VITAMIN B COMP/VIT C/FOLIC ACID CAPSULE PO SCH (07:57)
[2019-01-19] MEDS: DOCUSATE SODIUM 250 MG CAPSULE PO SCH ×2 (07:57→16:29)
[2019-01-19] MEDS: ISOSORBIDE MONONITRATE 60 MG ER TABLET PO SCH (07:57)
[2019-01-19] MEDS: BENZONATATE 100 MG CAPSULE PO SCH ×2 (07:58→16:29)
[2019-01-19] MEDS: MINERAL OIL/PETROLATUM 120 GM CREAM TP SCH ×2 (07:58→16:30)
[2019-01-19] MEDS: HEPARIN SODIUM,PORCINE 5,000 UNITS/ML VIAL SQ SCH (07:58)
[2019-01-19] MEDS ORDERED: INSULIN GLARGINE,HUM.REC.ANLOG 100 UNITS/ML SQ SCH (09:00)
[2019-01-19 11:23] VITALS: BP 159/65
[2019-01-19 15:04] VITALS: BP 152/72
[2019-01-19 17:40] LABS: GLUCOMETER DEV NAME(LOC) 5S.1; GLUCOSE,POINT OF CARE 76 MG/DL (70-110)
[2019-01-19 17:40] LABS: GLUCOMETER DEV NAME(LOC) 5S.1; GLUCOSE,POINT OF CARE 110 MG/DL (70-110)
[2019-01-19 17:40] LABS: GLUCOMETER DEV NAME(LOC) 5S.1; GLUCOSE,POINT OF CARE 127 MG/DL (70-110)
== END 2019-01-19 18:49 | disposition home or self-care (01) | DRG 163 ==
LOC: EMS 10:09 → 5S 13:04
PROVIDERS: ADMIT Internal Medicine; ATTEND Internal Medicine
PROC: 5A1D70Z Performance of Urinary Filtration, Intermittent, Less than 6 Hours Per Day (ICD-10-PCS; 2019-01-07)
PROC: 0W9B3ZZ Drainage of Left Pleural Cavity, Percutaneous Approach (ICD-10-PCS; 2019-01-09)
PROC: 5A1D70Z Performance of Urinary Filtration, Intermittent, Less than 6 Hours Per Day (ICD-10-PCS; 2019-01-10)
PROC: 5A1D70Z Performance of Urinary Filtration, Intermittent, Less than 6 Hours Per Day (ICD-10-PCS; 2019-01-11)
PROC: 0BCJ4ZZ Extirpation of Matter from Left Lower Lung Lobe, Percutaneous Endoscopic Approach (ICD-10-PCS; 2019-01-14)
PROC: 0B5P4ZZ Destruction of Left Pleura, Percutaneous Endoscopic Approach (ICD-10-PCS; 2019-01-14)
PROC: 3E0L4GC Introduction of Other Therapeutic Substance into Pleural Cavity, Percutaneous Endoscopic Approach (ICD-10-PCS; 2019-01-14)
PROC: 0BBP4ZX Excision of Left Pleura, Percutaneous Endoscopic Approach, Diagnostic (ICD-10-PCS; principal; 2019-01-14 10:30)
PROC: 5A1D70Z Performance of Urinary Filtration, Intermittent, Less than 6 Hours Per Day (ICD-10-PCS; 2019-01-15)
PROC: 5A1D70Z Performance of Urinary Filtration, Intermittent, Less than 6 Hours Per Day (ICD-10-PCS; 2019-01-17)
DX: J90 Pleural effusion, not elsewhere classified (principal); N18.6 End stage renal disease; J98.11 Atelectasis; R18.8 Other ascites; E87.1 Hypo-osmolality and hyponatremia; I13.2 Hypertensive heart and chronic kidney disease with heart failure and with stage 5 chronic kidney disease, or end stage renal disease; J93.9 Pneumothorax, unspecified; M10.9 Gout, unspecified; E11.22 Type 2 diabetes mellitus with diabetic chronic kidney disease; Z99.2 Dependence on renal dialysis; E78.5 Hyperlipidemia, unspecified; I50.9 Heart failure, unspecified; D69.6 Thrombocytopenia, unspecified; E78.00 Pure hypercholesterolemia, unspecified; I34.0 Nonrheumatic mitral (valve) insufficiency; I70.0 Atherosclerosis of aorta; J45.909 Unspecified asthma, uncomplicated; K74.60 Unspecified cirrhosis of liver; Z79.4 Long term (current) use of insulin; Z79.82 Long term (current) use of aspirin; Z82.49 Family history of ischemic heart disease and other diseases of the circulatory system; Z83.3 Family history of diabetes mellitus; Z87.891 Personal history of nicotine dependence; E11.21 Type 2 diabetes mellitus with diabetic nephropathy
CPT/HCPCS: 32555; 36600; 71260; 76942; 82465; 82805; 82945; 83036; 83615; 83986; 84132; 84157; 84295; 84443; 87015; 87070; 87081; 87101; 87205; 87206; 87252; 87340; 88108; 88305; 88342; 89051; 93005; 93306; 93970; 97162; 97165; 97535; G0378; J0131; J0360; J0885; J1644; J1815; J2270; J2704; J3490; J3535; J7030; J7040; J7050; J7060

== ENCOUNTER 2019-05-06 10:42 | Inpatient (IN) | payer MEDICARE, OTHER ==
[~2019-05-06] VITALS: Ht 162.6 cm; Wt 60.9 kg
[~2019-05-06 10:42] MED LIST changes: -ALLO100T PO; +ATOR20TA65 PO; +BENZ-51 PO; +DOCU-342 PO; +INSLAN SQ; -INSU100V12 SQ; +ISOS30TA6 PO; -SIMV-259 PO
[2019-05-06] MEDS ORDERED: ALBUTEROL SULFATE 2.5 MG/0.5 ML NEB SOLUTION NEB ONE (11:00)
[2019-05-06] MEDS ORDERED: IPRATROPIUM BROMIDE 0.5 MG/2.5 ML NEB SOLUTION NEB ONE (11:00)
[2019-05-06 11:51] LABS: BASOPHILS % (AUTO) 0.6 % (0.0-2.0); HEMATOCRIT 29.4 % (41-53); HEMOGLOBIN 9.6 g/dL (13.5-17.5); LYMPHOCYTES # (AUTO) 0.6 K/uL (1.0-4.8); LYMPHOCYTES % (AUTO) 11.7 % (22.0-44.0); MEAN CORPUSCULAR HEMOGLOBIN 33.5 pg (26.0-34.0); MEAN CORPUSCULAR HGB CONC 32.7 G/dL (31.0-37.0); MEAN CORPUSCULAR VOLUME 103 fL (80-100); MONOCYTES # (AUTO) 0.5 K/uL (0.1-1.0); MONOCYTES % (AUTO) 9.6 % (2.0-9.0); NEUTROPHILS # (AUTO) 3.5 K/uL (1.8-7.7); NEUTROPHILS % (AUTO) 68.1 % (40.0-70.0); PLATELET COUNT (AUTO) 102 K/uL (150-450); RED BLOOD CELL COUNT(AUTO) 2.86 MIL/uL (4.50-5.90); RED CELL DISTRIBUTION WIDTH 18.7 % (11.5-14.5)
[2019-05-06 12:03] LABS: CALCIUM, TOTAL 7.5 mg/dL (8.8-10.5); CREATININE 6.23 mg/dL (0.60-1.30); POTASSIUM 5.3 mmol/L (3.5-5.1)
[2019-05-06 12:07] LABS: ALBUMIN 2.8 g/dL (3.4-5.0); BILIRUBIN,TOTAL 0.6 mg/dL (0.1-1.0); TOTAL PROTEIN, SERUM 7.4 g/dL (6.4-8.2)
[2019-05-06] MEDS ORDERED: CefTRIAXone 1 GM/DEXTROSE 50 ML IV ONE (12:45)
[2019-05-06] MEDS ORDERED: AZITHROMYCIN 500 MG/NS 250 ML IV ONE (12:45)
[2019-05-06] MEDS ORDERED: ACETAMINOPHEN 325 MG TABLET PO PRN ×2 (13:00→19:45)
[2019-05-06] MEDS ORDERED: 0.9% SODIUM CHLORIDE 10 ML SYRINGE IVP PRN ×3 (13:00→19:45)
[2019-05-06 13:46] LABS: INFLUENZA TYPE A NEGATIVE FOR TYPE A (NEGATIVE); INFLUENZA TYPE B NEGATIVE FOR TYPE B (NEGATIVE)
[2019-05-06] MEDS: ALBUTEROL SULFATE 2.5 MG/0.5 ML NEB SOLUTION NEB SCH ×2 (15:00→19:39)
[2019-05-06] MEDS: IPRATROPIUM BROMIDE 0.5 MG/2.5 ML NEB SOLUTION NEB SCH ×2 (15:00→19:39)
[2019-05-06 15:08] VITALS: BP 148/73
[2019-05-06] MEDS: MethylPREDNISolone SOD SUCC 125 MG/2 ML VIAL IVP SCH ×2 (17:35→23:51)
[2019-05-06] MEDS ORDERED: SODIUM CHLORIDE 0.9% 1,000 ML ONE ×2 (17:52)
[2019-05-06] MEDS: BUDESONIDE 0.5 MG/2 ML NEB SOLUTION NEB SCH (19:38)
[2019-05-06] MEDS ORDERED: ONDANSETRON HCL 4 MG/2 ML VIAL IVP PRN (19:45)
[2019-05-06] MEDS ORDERED: BENZONATATE 100 MG CAPSULE PO PRN (19:45)
[2019-05-06] MEDS ORDERED: ALBUTEROL SULFATE 2.5 MG/0.5 ML NEB SOLUTION NEB PRN (19:45)
[2019-05-06] MEDS ORDERED: IPRATROPIUM BROMIDE 0.5 MG/2.5 ML NEB SOLUTION NEB PRN (19:45)
[2019-05-06] MEDS ORDERED: HYDROCODONE/ACETAMINOPHEN 5-325 MG TABLET PO PRN (19:45)
[2019-05-06 20:16] VITALS: BP 192/86
[2019-05-06] MEDS ORDERED: DOCUSATE SODIUM 250 MG CAPSULE PO SCH (21:00)
[2019-05-06] MEDS ORDERED: ATORVASTATIN CALCIUM 20 MG TABLET PO SCH (21:00)
[2019-05-06] MEDS: LOSARTAN POTASSIUM 50 MG TABLET PO SCH (22:38)
[2019-05-06] MEDS: HEPARIN SODIUM,PORCINE 5,000 UNITS/ML VIAL SQ SCH (22:38)
[2019-05-06] MEDS: DOCUSATE SODIUM 250 MG CAPSULE PO SCH (22:38)
[2019-05-06] MEDS: ATORVASTATIN CALCIUM 20 MG TABLET PO SCH (22:38)
[2019-05-06 22:51] LABS: GLUCOMETER DEV NAME(LOC) 5S.1; GLUCOSE,POINT OF CARE 167 MG/DL (70-110)
[2019-05-06 22:51] LABS: GLUCOMETER DEV NAME(LOC) 5S.1; GLUCOSE,POINT OF CARE 142 MG/DL (70-110)
[2019-05-06 23:30] VITALS: BP 141/62
[2019-05-06] MEDS: COLLOIDAL OATMEAL/DIMETH 227 GM LOTION TP SCH (23:51)
[2019-05-07 03:42] VITALS: BP 149/64
[2019-05-07] MEDS: MethylPREDNISolone SOD SUCC 125 MG/2 ML VIAL IVP SCH ×2 (05:33→11:37)
[2019-05-07] MEDS: PANTOPRAZOLE SODIUM 40 MG DR TABLET PO SCH (05:33)
[2019-05-07] MEDS: COLLOIDAL OATMEAL/DIMETH 227 GM LOTION TP SCH ×4 (05:33→23:09)
[2019-05-07 06:14] LABS: EOSINOPHILS % (AUTO) 0 % (1.0-6.0); HEMATOCRIT 29.9 % (41-53); HEMOGLOBIN 9.7 g/dL (13.5-17.5); LYMPHOCYTES # (AUTO) 0.3 K/uL (1.0-4.8); LYMPHOCYTES % (AUTO) 8.4 % (22.0-44.0); MEAN CORPUSCULAR HEMOGLOBIN 33.4 pg (26.0-34.0); MEAN CORPUSCULAR HGB CONC 32.4 G/dL (31.0-37.0); MEAN CORPUSCULAR VOLUME 103 fL (80-100); MONOCYTES % (AUTO) 1.5 % (2.0-9.0); NEUTROPHILS # (AUTO) 2.7 K/uL (1.8-7.7); PLATELET COUNT (AUTO) 108 K/uL (150-450); RED BLOOD CELL COUNT(AUTO) 2.91 MIL/uL (4.50-5.90); RED CELL DISTRIBUTION WIDTH 18.5 % (11.5-14.5)
[2019-05-07 06:18] LABS: NEUTROPHILS % (AUTO) 90.1 % (40.0-70.0)
[2019-05-07] MEDS ORDERED: DEXTROSE 50%-WATER 25 GM/50 ML SYRINGE IVP PRN (06:30)
[2019-05-07 06:34] LABS: CREATININE 4.51 mg/dL (0.60-1.30); POTASSIUM 5.2 mmol/L (3.5-5.1)
[2019-05-07 06:35] LABS: ALBUMIN 2.8 g/dL (3.4-5.0); BILIRUBIN,TOTAL 0.6 mg/dL (0.1-1.0); CALCIUM, TOTAL 8.4 mg/dL (8.8-10.5); TOTAL PROTEIN, SERUM 7.5 g/dL (6.4-8.2)
[2019-05-07] MEDS: INSULIN LISPRO 100 UNITS/ML SQ PRN ×3 (06:39→20:37)
[2019-05-07 07:35] VITALS: BP 156/73
[2019-05-07] MEDS: INSULIN GLARGINE,HUM.REC.ANLOG 100 UNITS/ML SQ SCH (08:43)
[2019-05-07] MEDS: HEPARIN SODIUM,PORCINE 5,000 UNITS/ML VIAL SQ SCH ×2 (09:00→20:30)
[2019-05-07] MEDS: ISOSORBIDE MONONITRATE 60 MG ER TABLET PO SCH (09:00)
[2019-05-07] MEDS: DOCUSATE SODIUM 250 MG CAPSULE PO SCH ×2 (09:00→20:29)
[2019-05-07] MEDS: ASPIRIN 81 MG CHEWABLE TABLET PO SCH (09:00)
[2019-05-07] MEDS: BUDESONIDE 0.5 MG/2 ML NEB SOLUTION NEB SCH ×2 (09:47→20:36)
[2019-05-07] MEDS ORDERED: SODIUM CHLORIDE 0.9% 2,000 ML ONE (09:57)
[2019-05-07 12:00] VITALS: BP 151/72
[2019-05-07 12:40] LABS: GLUCOMETER DEV NAME(LOC) 5N.1; GLUCOSE,POINT OF CARE 243 MG/DL (70-110)
[2019-05-07 16:25] VITALS: BP 139/62
[2019-05-07] MEDS ORDERED: MethylPREDNISolone SOD SUCC 40 MG/ML VIAL IVP SCH (18:00)
[2019-05-07 19:32] LABS: BASOPHILS % (AUTO) 0.3 % (0.0-2.0); EOSINOPHILS % (AUTO) 0 % (1.0-6.0); HEMATOCRIT 34.3 % (41-53); LYMPHOCYTES # (AUTO) 0.3 K/uL (1.0-4.8); LYMPHOCYTES % (AUTO) 6.2 % (22.0-44.0); MEAN CORPUSCULAR HEMOGLOBIN 33.2 pg (26.0-34.0); MEAN CORPUSCULAR HGB CONC 32.1 G/dL (31.0-37.0); MEAN CORPUSCULAR VOLUME 103 fL (80-100); MONOCYTES # (AUTO) 0.4 K/uL (0.1-1.0); MONOCYTES % (AUTO) 7.8 % (2.0-9.0); NEUTROPHILS # (AUTO) 4.5 K/uL (1.8-7.7); PLATELET COUNT (AUTO) 125 K/uL (150-450); RED BLOOD CELL COUNT(AUTO) 3.33 MIL/uL (4.50-5.90); RED CELL DISTRIBUTION WIDTH 18.2 % (11.5-14.5)
[2019-05-07 19:38] LABS: NEUTROPHILS % (AUTO) 85.7 % (40.0-70.0)
[2019-05-07 19:47] LABS: INR 1.2 (0.9-1.1); PROTHROMBIN TIME 11.8 SEC (9.4-11.6)
[2019-05-07 20:09] LABS: GLUCOMETER DEV NAME(LOC) 5N.1; GLUCOSE,POINT OF CARE 193 MG/DL (70-110)
[2019-05-07] MEDS: LOSARTAN POTASSIUM 50 MG TABLET PO SCH (20:29)
[2019-05-07] MEDS: MethylPREDNISolone SOD SUCC 40 MG/ML VIAL IVP SCH (20:30)
[2019-05-07] MEDS: ATORVASTATIN CALCIUM 20 MG TABLET PO SCH (20:30)
[2019-05-07 20:38] LABS: HEMOGLOBIN A1C 5.1 % (4.5-6.2)
[2019-05-07 20:40] LABS: CHOL/HDL RATIO 2.1 (4.2-7.3); THYROID STIMULATING HORMONE 0.95 uIU/mL (0.36-3.74)
[2019-05-07] MEDS ORDERED: VITAMIN B COMP/VIT C/FOLIC ACID CAPSULE PO SCH (21:00)
[2019-05-07] MEDS ORDERED: METOPROLOL SUCCINATE 25 MG ER TABLET PO SCH (21:00)
[2019-05-07] MEDS ORDERED: TERAZOSIN HCL 5 MG CAPSULE PO SCH (21:00)
[2019-05-07 21:11] VITALS: BP 145/65
[2019-05-08 00:10] VITALS: BP 149/71
[2019-05-08 05:07] VITALS: BP 145/62
[2019-05-08] MEDS: PANTOPRAZOLE SODIUM 40 MG DR TABLET PO SCH (05:50)
[2019-05-08] MEDS: COLLOIDAL OATMEAL/DIMETH 227 GM LOTION TP SCH ×2 (05:50→11:19)
[2019-05-08] MEDS: INSULIN LISPRO 100 UNITS/ML SQ PRN ×2 (05:56→11:19)
[2019-05-08 07:08] VITALS: BP 151/88
[2019-05-08 07:15] VITALS: BP 160/70
[2019-05-08 07:36] LABS: % IRON SATURATION 39.5 % (30-44)
[2019-05-08 07:47] LABS: ALBUMIN 2.8 g/dL (3.4-5.0); BILIRUBIN,TOTAL 0.5 mg/dL (0.1-1.0); CALCIUM, TOTAL 7.9 mg/dL (8.8-10.5); CREATININE 4.1 mg/dL (0.60-1.30); POTASSIUM 4.9 mmol/L (3.5-5.1); TOTAL PROTEIN, SERUM 7.2 g/dL (6.4-8.2)
[2019-05-08 08:10] LABS: GLUCOMETER DEV NAME(LOC) 5N.2; GLUCOSE,POINT OF CARE 213 MG/DL (70-110)
[2019-05-08 08:10] LABS: GLUCOMETER DEV NAME(LOC) 5N.2; GLUCOSE,POINT OF CARE 208 MG/DL (70-110)
[2019-05-08] MEDS: DOCUSATE SODIUM 250 MG CAPSULE PO SCH (08:35)
[2019-05-08] MEDS: ISOSORBIDE MONONITRATE 60 MG ER TABLET PO SCH (08:36)
[2019-05-08] MEDS: MethylPREDNISolone SOD SUCC 40 MG/ML VIAL IVP SCH (08:36)
[2019-05-08] MEDS: ASPIRIN 81 MG CHEWABLE TABLET PO SCH (08:36)
[2019-05-08] MEDS: HEPARIN SODIUM,PORCINE 5,000 UNITS/ML VIAL SQ SCH (08:36)
[2019-05-08] MEDS: INSULIN GLARGINE,HUM.REC.ANLOG 100 UNITS/ML SQ SCH (08:45)
[2019-05-08] MEDS: BUDESONIDE 0.5 MG/2 ML NEB SOLUTION NEB SCH (08:56)
[2019-05-08] MEDS ORDERED: EPOETIN ALFA 10,000 UNITS/ML VIAL SQ SCH (09:00)
[2019-05-08 10:47] VITALS: BP 148/66
[2019-05-08] MEDS ORDERED: FINA5TAB41 PO (13:40)
[2019-05-08] MEDS ORDERED: METO25XL PO (13:40)
[2019-05-08] MEDS ORDERED: ISOS60TA4 PO (13:40)
[2019-05-08] MEDS ORDERED: OMEP20 PO (13:40)
[2019-05-08] MEDS ORDERED: FOLI0.8T22 PO (13:40)
[2019-05-08] MEDS ORDERED: LIDOCAINE/PF 1% 2 ML VIAL IM ONE (13:59)
[2019-05-08 20:01] LABS: GLUCOMETER DEV NAME(LOC) 5N.1; GLUCOSE,POINT OF CARE 212 MG/DL (70-110)
[2019-05-25] MEDS ORDERED: PIOG15TA6 PO (15:54)
[2019-05-25] MEDS ORDERED: TERA5CAP12 PO (15:54)
[2019-05-25] MEDS ORDERED: HYDR-2924 PO (15:54)
[2019-05-25] MEDS ORDERED: SEVE800T17 PO (15:54)
[2019-05-25] MEDS ORDERED: ALBU8.5H8 IH (15:54)
[2019-05-25] MEDS ORDERED: MONT10TA21 PO (15:54)
[2019-05-25] MEDS ORDERED: B CO1CAP6 PO (15:54)
== END 2019-05-08 14:00 | disposition home or self-care (01) | DRG 291 ==
LOC: EMS 10:47 → 5N 14:20
PROVIDERS: ADMIT Internal Medicine; ATTEND Internal Medicine
PROC: 5A1D70Z Performance of Urinary Filtration, Intermittent, Less than 6 Hours Per Day (ICD-10-PCS; principal; 2019-05-06)
PROC: 5A1D70Z Performance of Urinary Filtration, Intermittent, Less than 6 Hours Per Day (ICD-10-PCS; 2019-05-07)
DX: I13.2 Hypertensive heart and chronic kidney disease with heart failure and with stage 5 chronic kidney disease, or end stage renal disease (principal); I50.31 Acute diastolic (congestive) heart failure; N18.6 End stage renal disease; R18.8 Other ascites; I31.3 Pericardial effusion (noninflammatory); J98.11 Atelectasis; J45.901 Unspecified asthma with (acute) exacerbation; J91.8 Pleural effusion in other conditions classified elsewhere; E11.22 Type 2 diabetes mellitus with diabetic chronic kidney disease; Z99.2 Dependence on renal dialysis; I25.10 Atherosclerotic heart disease of native coronary artery without angina pectoris; K20.9 Esophagitis, unspecified; D64.9 Anemia, unspecified; D69.6 Thrombocytopenia, unspecified; E78.00 Pure hypercholesterolemia, unspecified; E78.5 Hyperlipidemia, unspecified; E87.5 Hyperkalemia; M10.9 Gout, unspecified; J44.9 Chronic obstructive pulmonary disease, unspecified; Z79.4 Long term (current) use of insulin; Z79.82 Long term (current) use of aspirin; Z82.49 Family history of ischemic heart disease and other diseases of the circulatory system; Z91.19 Patient's noncompliance with other medical treatment and regimen; Z79.899 Other long term (current) drug therapy
CPT/HCPCS: 71250; 76700; 83036; 83540; 83550; 84145; 84443; 87040; 87081; 87340; 87804; 93005; 93925; 94060; 94640; 96365; 99291; J0456; J0696; J0885; J1644; J1815; J2920; J2930; J3490; J7030

== ENCOUNTER 2019-06-15 01:19 | Inpatient (IN) | payer MEDICARE, OTHER ==
[~2019-06-15] VITALS: Ht 162.6 cm; Wt 65.5 kg
[~2019-06-15 01:19] MED LIST changes: +ALBU8.5H8 IH; +AMLO5TAB9 PO; +ASPI-728 PO; -ASPI81 PO; +B CO1CAP6 PO; +FINA-27 PO; +GUAIF600 PO; +HYDR-2924 PO; -ISOS30TA6 PO; +ISOS60TA4 PO; +LOSA-88 PO; -LOSA50TA64 PO; +PHOSLOC PO; +PIOG15TA6 PO; +PRED20 PO; +PROM6.2521 PO; +SEVE800T17 PO; +TIOT4MIS3 PO
[2019-06-15 03:11] LABS: INFLUENZA TYPE A NEGATIVE FOR TYPE A (NEGATIVE); INFLUENZA TYPE B NEGATIVE FOR TYPE B (NEGATIVE)
[2019-06-15 03:13] LABS: EOSINOPHILS % (AUTO) 0 % (1.0-6.0); HEMOGLOBIN 12.3 g/dL (13.5-17.5); LYMPHOCYTES # (AUTO) 0.2 K/uL (1.0-4.8); LYMPHOCYTES % (AUTO) 3.9 % (22.0-44.0); MEAN CORPUSCULAR HEMOGLOBIN 33.3 pg (26.0-34.0); MEAN CORPUSCULAR HGB CONC 32.5 G/dL (31.0-37.0); MEAN CORPUSCULAR VOLUME 103 fL (80-100); MONOCYTES # (AUTO) 0.7 K/uL (0.1-1.0); MONOCYTES % (AUTO) 13.2 % (2.0-9.0); NEUTROPHILS # (AUTO) 4.5 K/uL (1.8-7.7); NEUTROPHILS % (AUTO) 81.9 % (40.0-70.0); PLATELET COUNT (AUTO) 131 K/uL (150-450); RED CELL DISTRIBUTION WIDTH 22.9 % (11.5-14.5)
[2019-06-15] MEDS ORDERED: IPRATROPIUM BROMIDE 0.5 MG/2.5 ML NEB SOLUTION NEB ONE (03:15)
[2019-06-15] MEDS ORDERED: ALBUTEROL SULFATE 2.5 MG/0.5 ML NEB SOLUTION NEB ONE (03:15)
[2019-06-15 03:21] LABS: CALCIUM, TOTAL 8.3 mg/dL (8.8-10.5); CREATININE 7.43 mg/dL (0.60-1.30)
[2019-06-15 03:27] LABS: ALBUMIN 2.7 g/dL (3.4-5.0); TOTAL PROTEIN, SERUM 7.1 g/dL (6.4-8.2)
[2019-06-15] MEDS ORDERED: ACETAMINOPHEN 325 MG TABLET PO ONE (04:15)
[2019-06-15] MEDS ORDERED: OSELTAMIVIR PHOSPHATE 30 MG CAPSULE PO ONE (04:15)
[2019-06-15] MEDS ORDERED: IOVERSOL 350 MG/ML 100 ML VIAL ONE (04:25)
[2019-06-15] MEDS ORDERED: SODIUM CHLORIDE 0.9% 100 ML ONE (04:25)
[2019-06-15] MEDS ORDERED: VANCOMYCIN HCL 1.25 GM in DEXTROSE 5%-WATER 250 ML IV ONE (04:30)
[2019-06-15] MEDS ORDERED: 0.9% SODIUM CHLORIDE 10 ML SYRINGE IVP PRN ×3 (05:00→11:45)
[2019-06-15] MEDS ORDERED: ACETAMINOPHEN 325 MG TABLET PO PRN ×3 (05:00→11:45)
[2019-06-15] MEDS ORDERED: ONDANSETRON HCL 4 MG/2 ML VIAL IVP PRN ×3 (05:00→11:45)
[2019-06-15] MEDS: PIPERACILLIN SODIUM/TAZOBACTAM 2.25 GM in DEXTROSE 5%-WATER 50 ML IV SCH ×3 (07:16→21:03)
[2019-06-15 08:58] VITALS: BP 152/70
[2019-06-15] MEDS: VITAMIN B COMP/VIT C/FOLIC ACID CAPSULE PO SCH (11:15)
[2019-06-15] MEDS: PANTOPRAZOLE SODIUM 40 MG DR TABLET PO SCH (11:45)
[2019-06-15] MEDS: GuaiFENesin SR 600 MG ER TABLET PO SCH ×2 (11:45→23:13)
[2019-06-15] MEDS: INSULIN GLARGINE,HUM.REC.ANLOG 100 UNITS/ML SQ SCH (11:45)
[2019-06-15] MEDS: PIOGLITAZONE HCL 15 MG TABLET PO SCH (11:45)
[2019-06-15] MEDS: SEVELAMER CARBONATE 800 MG TABLET PO SCH (11:45)
[2019-06-15] MEDS ORDERED: HYDROCODONE/ACETAMINOPHEN 5-325 MG TABLET PO PRN (11:45)
[2019-06-15] MEDS: HEPARIN SODIUM,PORCINE 5,000 UNITS/ML VIAL SQ SCH ×2 (11:45→21:00)
[2019-06-15] MEDS: FINASTERIDE 5 MG TABLET PO SCH (11:45)
[2019-06-15] MEDS ORDERED: [UNRECOGNIZED DRUG - OTHER] IH SCH (11:45)
[2019-06-15] MEDS ORDERED: VITAMIN B COMP/VIT C/FOLIC ACID CAPSULE PO SCH (11:45)
[2019-06-15] MEDS: CALCIUM ACETATE 667 MG CAPSULE PO SCH (12:00)
[2019-06-15 13:00] VITALS: BP 106/55
[2019-06-15] MEDS ORDERED: SODIUM CHLORIDE 0.9% 250 ML IV ONE (15:08)
[2019-06-15] MEDS: AmLODIPine BESYLATE 5 MG TABLET PO SCH (15:31)
[2019-06-15] MEDS: ASPIRIN 81 MG CHEWABLE TABLET PO SCH (15:31)
[2019-06-15] MEDS: ISOSORBIDE MONONITRATE 60 MG ER TABLET PO SCH (15:32)
[2019-06-15] MEDS: HydrALAZINE HCL 50 MG TABLET PO SCH ×2 (15:32→21:01)
[2019-06-15 17:30] VITALS: BP 95/71
[2019-06-15 18:14] LABS: GLUCOMETER DEV NAME(LOC) 5S.2A; GLUCOSE,POINT OF CARE 73 MG/DL (70-110)
[2019-06-15 18:15] LABS: GLUCOMETER DEV NAME(LOC) 5S.1; GLUCOSE,POINT OF CARE 113 MG/DL (70-110)
[2019-06-15] MEDS ORDERED: *CLINICAL-RX DOSING [ENTER DRUG IN COMMENTS] CLINICAL ONE (18:15)
[2019-06-15] MEDS ORDERED: VANCOMYCIN HCL 1 GM/D5% WATER 200 ML IV PRN (19:00)
[2019-06-15 21:00] VITALS: BP 122/55
[2019-06-15] MEDS: LOSARTAN POTASSIUM 50 MG TABLET PO SCH (21:00)
[2019-06-15] MEDS: DOCUSATE SODIUM 250 MG CAPSULE PO SCH (21:03)
[2019-06-15] MEDS: ATORVASTATIN CALCIUM 20 MG TABLET PO SCH (21:04)
[2019-06-16] VITALS (7 sets, daily range): BP systolic 100–123; BP diastolic 44–83
[2019-06-16] MEDS: PANTOPRAZOLE SODIUM 40 MG DR TABLET PO SCH (05:33)
[2019-06-16] MEDS: PIPERACILLIN SODIUM/TAZOBACTAM 2.25 GM in DEXTROSE 5%-WATER 50 ML IV SCH ×3 (05:34→21:38)
[2019-06-16 07:04] LABS: BASOPHILS % (AUTO) 0.7 % (0.0-2.0); EOSINOPHILS % (AUTO) 1.1 % (1.0-6.0); HEMATOCRIT 37.2 % (41-53); LYMPHOCYTES # (AUTO) 0.2 K/uL (1.0-4.8); LYMPHOCYTES % (AUTO) 5.1 % (22.0-44.0); MEAN CORPUSCULAR HGB CONC 32.2 G/dL (31.0-37.0); MEAN CORPUSCULAR VOLUME 106 fL (80-100); MONOCYTES # (AUTO) 0.5 K/uL (0.1-1.0); MONOCYTES % (AUTO) 11.9 % (2.0-9.0); NEUTROPHILS # (AUTO) 3.5 K/uL (1.8-7.7); NEUTROPHILS % (AUTO) 81.2 % (40.0-70.0); PLATELET COUNT (AUTO) 129 K/uL (150-450); RED BLOOD CELL COUNT(AUTO) 3.52 MIL/uL (4.50-5.90)
[2019-06-16 07:19] LABS: BILIRUBIN,TOTAL 0.9 mg/dL (0.1-1.0); CALCIUM, TOTAL 8.1 mg/dL (8.8-10.5); CREATININE 5.37 mg/dL (0.60-1.30); POTASSIUM 4.2 mmol/L (3.5-5.1); TOTAL PROTEIN, SERUM 6.1 g/dL (6.4-8.2)
[2019-06-16 07:31] LABS: GLUCOMETER DEV NAME(LOC) 5S.1; GLUCOSE,POINT OF CARE 115 MG/DL (70-110)
[2019-06-16 07:46] LABS: VANCOMYCIN,RANDOM 15.8 mcg/mL (25.0-50.0)
[2019-06-16] MEDS: CALCIUM ACETATE 667 MG CAPSULE PO SCH ×3 (08:50→18:00)
[2019-06-16] MEDS: PIOGLITAZONE HCL 15 MG TABLET PO SCH (08:50)
[2019-06-16] MEDS: SEVELAMER CARBONATE 800 MG TABLET PO SCH (08:50)
[2019-06-16] MEDS: VITAMIN B COMP/VIT C/FOLIC ACID CAPSULE PO SCH (08:50)
[2019-06-16] MEDS: DOCUSATE SODIUM 250 MG CAPSULE PO SCH ×3 (08:50→22:08)
[2019-06-16] MEDS: AmLODIPine BESYLATE 5 MG TABLET PO SCH (08:50)
[2019-06-16] MEDS: FINASTERIDE 5 MG TABLET PO SCH (08:50)
[2019-06-16] MEDS: ISOSORBIDE MONONITRATE 60 MG ER TABLET PO SCH (08:51)
[2019-06-16] MEDS: ASPIRIN 81 MG CHEWABLE TABLET PO SCH (08:51)
[2019-06-16] MEDS: HydrALAZINE HCL 50 MG TABLET PO SCH ×2 (08:51→21:00)
[2019-06-16] MEDS: HEPARIN SODIUM,PORCINE 5,000 UNITS/ML VIAL SQ SCH ×2 (09:00→22:08)
[2019-06-16] MEDS: [UNRECOGNIZED DRUG - REMARK] MISC SCH (09:00)
[2019-06-16] MEDS: INSULIN GLARGINE,HUM.REC.ANLOG 100 UNITS/ML SQ SCH (09:02)
[2019-06-16 11:05] LABS: BASOPHILS % (AUTO) 1.2 % (0.0-2.0); EOSINOPHILS % (AUTO) 0.9 % (1.0-6.0); HEMATOCRIT 35.2 % (41-53); HEMOGLOBIN 11.6 g/dL (13.5-17.5); LYMPHOCYTES # (AUTO) 0.2 K/uL (1.0-4.8); LYMPHOCYTES % (AUTO) 5.2 % (22.0-44.0); MEAN CORPUSCULAR HGB CONC 33.1 G/dL (31.0-37.0); MEAN CORPUSCULAR VOLUME 103 fL (80-100); MONOCYTES # (AUTO) 0.6 K/uL (0.1-1.0); MONOCYTES % (AUTO) 12.6 % (2.0-9.0); NEUTROPHILS # (AUTO) 3.5 K/uL (1.8-7.7); NEUTROPHILS % (AUTO) 80.1 % (40.0-70.0); PLATELET COUNT (AUTO) 136 K/uL (150-450); RED BLOOD CELL COUNT(AUTO) 3.43 MIL/uL (4.50-5.90)
[2019-06-16 11:26] LABS: HEMOGLOBIN A1C 5.8 % (4.5-6.2)
[2019-06-16 11:27] LABS: INR 1.1 (0.9-1.1); PROTHROMBIN TIME 11.6 SEC (9.4-11.6)
[2019-06-16 11:38] LABS: CHOL/HDL RATIO 3.1 (4.2-7.3); THYROID STIMULATING HORMONE 4.3 uIU/mL (0.36-3.74)
[2019-06-16] MEDS: GuaiFENesin SR 600 MG ER TABLET PO SCH ×2 (12:31→23:39)
[2019-06-16] MEDS ORDERED: SODIUM CHLORIDE 0.9% 100 ML ONE (15:00)
[2019-06-16] MEDS ORDERED: IOVERSOL 350 MG/ML 100 ML VIAL ONE (15:01)
[2019-06-16] MEDS ORDERED: SODIUM CHLORIDE 0.9% 1,000 ML ONE (17:04)
[2019-06-16] MEDS ORDERED: VANCOMYCIN HCL 1 GM/D5% WATER 200 ML IV ONE (18:00)
[2019-06-16] MEDS: LOSARTAN POTASSIUM 50 MG TABLET PO SCH (21:00)
[2019-06-16] MEDS: OSELTAMIVIR PHOSPHATE 30 MG CAPSULE PO PRN (21:37)
[2019-06-16] MEDS: PIPERACILLIN SODIUM/TAZOBACTAM 0.75 GM in DEXTROSE 5%-WATER 50 ML IV PRN (21:38)
[2019-06-16] MEDS: -POST HEMODIALYSIS NOTE- MISC SCH (22:02)
[2019-06-16] MEDS: PROMETHAZINE HCL 6.25 MG/5 ML SYRUP ORAL.SYG PO PRN (22:08)
[2019-06-16] MEDS: ATORVASTATIN CALCIUM 20 MG TABLET PO SCH (22:09)
[2019-06-17] VITALS (7 sets, daily range): BP systolic 101–152; BP diastolic 52–73
[2019-06-17] MEDS: BENZONATATE 100 MG CAPSULE PO PRN ×3 (01:06→21:15)
[2019-06-17] MEDS: PROMETHAZINE HCL 6.25 MG/5 ML SYRUP ORAL.SYG PO PRN ×3 (05:04→19:10)
[2019-06-17] MEDS: PIPERACILLIN SODIUM/TAZOBACTAM 2.25 GM in DEXTROSE 5%-WATER 50 ML IV SCH ×3 (05:04→21:13)
[2019-06-17] MEDS: PANTOPRAZOLE SODIUM 40 MG DR TABLET PO SCH (06:30)
[2019-06-17] MEDS: FINASTERIDE 5 MG TABLET PO SCH (08:51)
[2019-06-17] MEDS: PIOGLITAZONE HCL 15 MG TABLET PO SCH (08:51)
[2019-06-17] MEDS: VITAMIN B COMP/VIT C/FOLIC ACID CAPSULE PO SCH (08:51)
[2019-06-17] MEDS: DOCUSATE SODIUM 250 MG CAPSULE PO SCH ×3 (08:51→21:14)
[2019-06-17] MEDS: ISOSORBIDE MONONITRATE 60 MG ER TABLET PO SCH (08:51)
[2019-06-17] MEDS: AmLODIPine BESYLATE 5 MG TABLET PO SCH (08:51)
[2019-06-17] MEDS: SEVELAMER CARBONATE 800 MG TABLET PO SCH (08:51)
[2019-06-17] MEDS: HydrALAZINE HCL 50 MG TABLET PO SCH ×2 (08:51→21:14)
[2019-06-17] MEDS: CALCIUM ACETATE 667 MG CAPSULE PO SCH ×3 (08:51→18:24)
[2019-06-17] MEDS: ASPIRIN 81 MG CHEWABLE TABLET PO SCH (08:52)
[2019-06-17] MEDS: HEPARIN SODIUM,PORCINE 5,000 UNITS/ML VIAL SQ SCH ×2 (08:52→21:15)
[2019-06-17] MEDS: INSULIN GLARGINE,HUM.REC.ANLOG 100 UNITS/ML SQ SCH (09:13)
[2019-06-17 09:57] LABS: BILIRUBIN,TOTAL 0.7 mg/dL (0.1-1.0); CALCIUM, TOTAL 7.9 mg/dL (8.8-10.5); CREATININE 4.32 mg/dL (0.60-1.30); POTASSIUM 3.7 mmol/L (3.5-5.1); TOTAL PROTEIN, SERUM 6.3 g/dL (6.4-8.2)
[2019-06-17] MEDS: GuaiFENesin SR 600 MG ER TABLET PO SCH (12:20)
[2019-06-17] MEDS: IPRATROPIUM BROMIDE 0.5 MG/2.5 ML NEB SOLUTION NEB PRN (16:59)
[2019-06-17] MEDS: ALBUTEROL SULFATE 2.5 MG/0.5 ML NEB SOLUTION NEB PRN (16:59)
[2019-06-17 20:21] LABS: GLUCOMETER DEV NAME(LOC) 5S.1; GLUCOSE,POINT OF CARE 175 MG/DL (70-110)
[2019-06-17 20:22] LABS: GLUCOMETER DEV NAME(LOC) 5S.1; GLUCOSE,POINT OF CARE 193 MG/DL (70-110)
[2019-06-17 20:22] LABS: GLUCOMETER DEV NAME(LOC) 5S.1; GLUCOSE,POINT OF CARE 114 MG/DL (70-110)
[2019-06-17] MEDS: LOSARTAN POTASSIUM 50 MG TABLET PO SCH (21:14)
[2019-06-17] MEDS: ATORVASTATIN CALCIUM 20 MG TABLET PO SCH (21:14)
[2019-06-17 23:27] LABS: GLUCOMETER DEV NAME(LOC) 5S.1; GLUCOSE,POINT OF CARE 198 MG/DL (70-110)
[2019-06-18] MEDS: GuaiFENesin SR 600 MG ER TABLET PO SCH ×3 (00:23→22:50)
[2019-06-18] MEDS: PROMETHAZINE HCL 6.25 MG/5 ML SYRUP ORAL.SYG PO PRN (00:23)
[2019-06-18 04:17] VITALS: BP 128/57
[2019-06-18] MEDS ORDERED: SODIUM CHLORIDE 0.9% 100 ML ONE (06:46)
[2019-06-18] MEDS: PANTOPRAZOLE SODIUM 40 MG DR TABLET PO SCH (06:48)
[2019-06-18] MEDS: PIPERACILLIN SODIUM/TAZOBACTAM 2.25 GM in DEXTROSE 5%-WATER 50 ML IV SCH ×3 (06:48→22:26)
[2019-06-18 07:02] LABS: CREATININE 6.07 mg/dL (0.60-1.30); POTASSIUM 4.2 mmol/L (3.5-5.1); VANCOMYCIN,RANDOM 25.3 mcg/mL (25.0-50.0)
[2019-06-18 07:33] VITALS: BP 148/65
[2019-06-18 08:06] LABS: GLUCOMETER DEV NAME(LOC) 5S.2A; GLUCOSE,POINT OF CARE 63 MG/DL (70-110)
[2019-06-18] MEDS ORDERED: SODIUM CHLORIDE 0.9% 2,000 ML ONE (08:41)
[2019-06-18] MEDS: INSULIN GLARGINE,HUM.REC.ANLOG 100 UNITS/ML SQ SCH (09:00)
[2019-06-18] MEDS: ISOSORBIDE MONONITRATE 60 MG ER TABLET PO SCH (09:28)
[2019-06-18] MEDS: ASPIRIN 81 MG CHEWABLE TABLET PO SCH (09:28)
[2019-06-18] MEDS: CALCIUM ACETATE 667 MG CAPSULE PO SCH ×3 (09:28→18:05)
[2019-06-18] MEDS: HydrALAZINE HCL 50 MG TABLET PO SCH ×2 (09:29→22:11)
[2019-06-18] MEDS: DOCUSATE SODIUM 250 MG CAPSULE PO SCH ×3 (09:29→22:14)
[2019-06-18] MEDS: FINASTERIDE 5 MG TABLET PO SCH (09:29)
[2019-06-18] MEDS: VITAMIN B COMP/VIT C/FOLIC ACID CAPSULE PO SCH (09:29)
[2019-06-18] MEDS: PIOGLITAZONE HCL 15 MG TABLET PO SCH (09:30)
[2019-06-18] MEDS: AmLODIPine BESYLATE 5 MG TABLET PO SCH (09:30)
[2019-06-18] MEDS: SEVELAMER CARBONATE 800 MG TABLET PO SCH (09:30)
[2019-06-18] MEDS: OSELTAMIVIR PHOSPHATE 30 MG CAPSULE PO PRN (13:40)
[2019-06-18] MEDS: PIPERACILLIN SODIUM/TAZOBACTAM 0.75 GM in DEXTROSE 5%-WATER 50 ML IV PRN (13:40)
[2019-06-18] MEDS: -POST HEMODIALYSIS NOTE- MISC SCH ×2 (13:46→15:45)
[2019-06-18] MEDS: [UNRECOGNIZED DRUG - REMARK] MISC SCH ×2 (13:46→15:44)
[2019-06-18] MEDS: IPRATROPIUM BROMIDE 0.5 MG/2.5 ML NEB SOLUTION NEB PRN (14:05)
[2019-06-18] MEDS: ALBUTEROL SULFATE 2.5 MG/0.5 ML NEB SOLUTION NEB PRN (14:06)
[2019-06-18] MEDS: HEPARIN SODIUM,PORCINE 5,000 UNITS/ML VIAL SQ SCH ×2 (14:31→22:11)
[2019-06-18] MEDS: HYDROCODONE/CHLORPHEN POLIS 10-8 MG/5 ML ORAL.SYG PO SCH ×2 (14:39→22:11)
[2019-06-18 15:40] VITALS: BP 126/70
[2019-06-18 17:45] LABS: GLUCOMETER DEV NAME(LOC) 5S.1; GLUCOSE,POINT OF CARE 160 MG/DL (70-110)
[2019-06-18 17:45] LABS: GLUCOMETER DEV NAME(LOC) 5S.1; GLUCOSE,POINT OF CARE 117 MG/DL (70-110)
[2019-06-18 19:18] VITALS: BP 146/65
[2019-06-18 22:00] VITALS: BP 146/71
[2019-06-18] MEDS: ATORVASTATIN CALCIUM 20 MG TABLET PO SCH (22:11)
[2019-06-18] MEDS: LOSARTAN POTASSIUM 50 MG TABLET PO SCH (22:11)
[2019-06-18 22:49] LABS: GLUCOMETER DEV NAME(LOC) 5S.1; GLUCOSE,POINT OF CARE 125 MG/DL (70-110)
[2019-06-18 23:46] VITALS: BP 130/89
[2019-06-19] MEDS: BENZONATATE 100 MG CAPSULE PO PRN ×2 (02:48→23:49)
[2019-06-19 04:51] VITALS: BP 135/67
[2019-06-19] MEDS: PANTOPRAZOLE SODIUM 40 MG DR TABLET PO SCH (05:38)
[2019-06-19] MEDS: PIPERACILLIN SODIUM/TAZOBACTAM 2.25 GM in DEXTROSE 5%-WATER 50 ML IV SCH ×3 (05:39→21:32)
[2019-06-19] MEDS: PROMETHAZINE HCL 6.25 MG/5 ML SYRUP ORAL.SYG PO PRN (05:55)
[2019-06-19 07:38] VITALS: BP 143/71
[2019-06-19] MEDS: HYDROCODONE/CHLORPHEN POLIS 10-8 MG/5 ML ORAL.SYG PO SCH ×2 (08:16→21:33)
[2019-06-19] MEDS: SEVELAMER CARBONATE 800 MG TABLET PO SCH (08:17)
[2019-06-19] MEDS: ASPIRIN 81 MG CHEWABLE TABLET PO SCH (08:17)
[2019-06-19] MEDS: CALCIUM ACETATE 667 MG CAPSULE PO SCH ×3 (08:17→18:31)
[2019-06-19] MEDS: DOCUSATE SODIUM 250 MG CAPSULE PO SCH ×2 (08:17→21:33)
[2019-06-19] MEDS: FINASTERIDE 5 MG TABLET PO SCH (08:17)
[2019-06-19] MEDS: PIOGLITAZONE HCL 15 MG TABLET PO SCH (08:17)
[2019-06-19] MEDS: ISOSORBIDE MONONITRATE 60 MG ER TABLET PO SCH (08:17)
[2019-06-19] MEDS: AmLODIPine BESYLATE 5 MG TABLET PO SCH (08:17)
[2019-06-19] MEDS: VITAMIN B COMP/VIT C/FOLIC ACID CAPSULE PO SCH (08:17)
[2019-06-19] MEDS: HydrALAZINE HCL 50 MG TABLET PO SCH ×2 (08:18→21:36)
[2019-06-19] MEDS: HEPARIN SODIUM,PORCINE 5,000 UNITS/ML VIAL SQ SCH ×2 (08:19→21:32)
[2019-06-19] MEDS: INSULIN GLARGINE,HUM.REC.ANLOG 100 UNITS/ML SQ SCH (08:19)
[2019-06-19] MEDS: -POST HEMODIALYSIS NOTE- MISC SCH (09:00)
[2019-06-19] MEDS: [UNRECOGNIZED DRUG - REMARK] MISC SCH (09:00)
[2019-06-19 10:35] LABS: ALBUMIN 2.1 g/dL (3.4-5.0); BILIRUBIN,TOTAL 0.8 mg/dL (0.1-1.0); CREATININE 4.9 mg/dL (0.60-1.30); POTASSIUM 4.4 mmol/L (3.5-5.1); TOTAL PROTEIN, SERUM 6.6 g/dL (6.4-8.2)
[2019-06-19 11:19] VITALS: BP 122/67
[2019-06-19] MEDS: GuaiFENesin SR 600 MG ER TABLET PO SCH ×2 (12:22→23:49)
[2019-06-19 15:06] VITALS: BP 132/53
[2019-06-19] MEDS ORDERED: SODIUM CHLORIDE 0.9% 100 ML ONE (17:49)
[2019-06-19] MEDS ORDERED: IOVERSOL 350 MG/ML 100 ML VIAL ONE (17:49)
[2019-06-19 19:11] LABS: GLUCOMETER DEV NAME(LOC) 5S.2A; GLUCOSE,POINT OF CARE 133 MG/DL (70-110)
[2019-06-19 19:11] LABS: GLUCOMETER DEV NAME(LOC) 5S.2A; GLUCOSE,POINT OF CARE 88 MG/DL (70-110)
[2019-06-19 19:27] VITALS: BP 160/67
[2019-06-19] MEDS: ATORVASTATIN CALCIUM 20 MG TABLET PO SCH (21:33)
[2019-06-19] MEDS: LOSARTAN POTASSIUM 50 MG TABLET PO SCH (21:33)
[2019-06-19 23:02] LABS: GLUCOMETER DEV NAME(LOC) 5S.1; GLUCOSE,POINT OF CARE 126 MG/DL (70-110)
[2019-06-19 23:56] VITALS: BP 141/57
[2019-06-20 04:28] VITALS: BP 131/71
[2019-06-20] MEDS: PIPERACILLIN SODIUM/TAZOBACTAM 2.25 GM in DEXTROSE 5%-WATER 50 ML IV SCH ×3 (04:31→20:15)
[2019-06-20] MEDS ORDERED: SODIUM CHLORIDE 0.9% 250 ML IV ONE ×2 (04:34→20:17)
[2019-06-20 05:28] LABS: GLUCOMETER DEV NAME(LOC) 5S.2A; GLUCOSE,POINT OF CARE 178 MG/DL (70-110)
[2019-06-20 05:54] LABS: HEMATOCRIT 33.9 % (41-53); HEMOGLOBIN 11.1 g/dL (13.5-17.5); MEAN CORPUSCULAR HEMOGLOBIN 33.3 pg (26.0-34.0); MEAN CORPUSCULAR HGB CONC 32.8 G/dL (31.0-37.0); MEAN CORPUSCULAR VOLUME 102 fL (80-100); PLATELET COUNT (AUTO) 218 K/uL (150-450); RED BLOOD CELL COUNT(AUTO) 3.34 MIL/uL (4.50-5.90); RED CELL DISTRIBUTION WIDTH 21.5 % (11.5-14.5)
[2019-06-20 06:04] LABS: GLUCOMETER DEV NAME(LOC) 5S.1; GLUCOSE,POINT OF CARE 144 MG/DL (70-110)
[2019-06-20 06:10] LABS: ALBUMIN 1.9 g/dL (3.4-5.0); BILIRUBIN,TOTAL 0.8 mg/dL (0.1-1.0); CALCIUM, TOTAL 8.2 mg/dL (8.8-10.5); CREATININE 6.64 mg/dL (0.60-1.30); POTASSIUM 4.6 mmol/L (3.5-5.1); TOTAL PROTEIN, SERUM 6.5 g/dL (6.4-8.2); VANCOMYCIN,RANDOM 16.2 mcg/mL (25.0-50.0)
[2019-06-20] MEDS: PANTOPRAZOLE SODIUM 40 MG DR TABLET PO SCH (06:10)
[2019-06-20 06:27] LABS: BAND NEUTROPHILS % (MANUAL) 6 % (0-5); EOSINOPHILS % (MANUAL) 1 % (1-6); LYMPHOCYTES % (MANUAL) 17 % (22-44); METAMYELOCYTES % 3 % (0-0); MONOCYTES % (MANUAL) 11 % (2-9); SEGMENTED NEUTROPHILS % 62 % (40-70)
[2019-06-20] MEDS ORDERED: SODIUM CHLORIDE 0.9% 1,000 ML ONE (06:31)
[2019-06-20 07:36] VITALS: BP 166/78
[2019-06-20] MEDS: CALCIUM ACETATE 667 MG CAPSULE PO SCH ×3 (08:26→18:17)
[2019-06-20] MEDS: SEVELAMER CARBONATE 800 MG TABLET PO SCH (08:26)
[2019-06-20] MEDS: -POST HEMODIALYSIS NOTE- MISC SCH (09:00)
[2019-06-20] MEDS: INSULIN GLARGINE,HUM.REC.ANLOG 100 UNITS/ML SQ SCH (09:00)
[2019-06-20] MEDS: HEPARIN SODIUM,PORCINE 5,000 UNITS/ML VIAL SQ SCH ×2 (09:00→20:58)
[2019-06-20] MEDS ORDERED: VANCOMYCIN HCL 1 GM/D5% WATER 200 ML IV ONE (10:00)
[2019-06-20 11:10] LABS: GLUCOMETER DEV NAME(LOC) 5S.1; GLUCOSE,POINT OF CARE 117 MG/DL (70-110)
[2019-06-20 11:21] VITALS: BP 168/85
[2019-06-20] MEDS: OSELTAMIVIR PHOSPHATE 30 MG CAPSULE PO PRN (11:30)
[2019-06-20] MEDS: HydrALAZINE HCL 50 MG TABLET PO SCH ×2 (11:31→20:57)
[2019-06-20] MEDS: DOCUSATE SODIUM 250 MG CAPSULE PO SCH ×2 (11:31→20:58)
[2019-06-20] MEDS: ASPIRIN 81 MG CHEWABLE TABLET PO SCH (11:31)
[2019-06-20] MEDS: PIOGLITAZONE HCL 15 MG TABLET PO SCH (11:31)
[2019-06-20] MEDS: [UNRECOGNIZED DRUG - REMARK] MISC SCH (11:31)
[2019-06-20] MEDS: ISOSORBIDE MONONITRATE 60 MG ER TABLET PO SCH (11:32)
[2019-06-20] MEDS: GuaiFENesin SR 600 MG ER TABLET PO SCH ×2 (11:32→23:02)
[2019-06-20] MEDS: AmLODIPine BESYLATE 5 MG TABLET PO SCH (11:32)
[2019-06-20] MEDS: FINASTERIDE 5 MG TABLET PO SCH (11:32)
[2019-06-20] MEDS: HYDROCODONE/CHLORPHEN POLIS 10-8 MG/5 ML ORAL.SYG PO SCH ×2 (11:32→20:59)
[2019-06-20] MEDS: VITAMIN B COMP/VIT C/FOLIC ACID CAPSULE PO SCH (11:32)
[2019-06-20 15:16] VITALS: BP 128/64
[2019-06-20 19:41] VITALS: BP 158/67
[2019-06-20] MEDS: ATORVASTATIN CALCIUM 20 MG TABLET PO SCH (20:58)
[2019-06-20] MEDS: LOSARTAN POTASSIUM 50 MG TABLET PO SCH (20:58)
[2019-06-21 00:35] VITALS: BP 127/68
[2019-06-21] MEDS: PROMETHAZINE HCL 6.25 MG/5 ML SYRUP ORAL.SYG PO PRN ×2 (01:31→19:24)
[2019-06-21 02:13] LABS: GLUCOMETER DEV NAME(LOC) 5S.1; GLUCOSE,POINT OF CARE 152 MG/DL (70-110)
[2019-06-21 04:01] VITALS: BP 134/69
[2019-06-21] MEDS: PIPERACILLIN SODIUM/TAZOBACTAM 2.25 GM in DEXTROSE 5%-WATER 50 ML IV SCH ×3 (04:15→20:32)
[2019-06-21] MEDS: PANTOPRAZOLE SODIUM 40 MG DR TABLET PO SCH (05:37)
[2019-06-21 07:36] VITALS: BP 172/68
[2019-06-21] MEDS: VITAMIN B COMP/VIT C/FOLIC ACID CAPSULE PO SCH (08:29)
[2019-06-21] MEDS: PIOGLITAZONE HCL 15 MG TABLET PO SCH (08:30)
[2019-06-21] MEDS: SEVELAMER CARBONATE 800 MG TABLET PO SCH (08:30)
[2019-06-21] MEDS: -POST HEMODIALYSIS NOTE- MISC SCH (08:30)
[2019-06-21] MEDS: CALCIUM ACETATE 667 MG CAPSULE PO SCH ×3 (08:30→18:07)
[2019-06-21] MEDS: HydrALAZINE HCL 50 MG TABLET PO SCH ×2 (08:31→20:24)
[2019-06-21] MEDS: DOCUSATE SODIUM 250 MG CAPSULE PO SCH ×2 (08:32→20:25)
[2019-06-21] MEDS: FINASTERIDE 5 MG TABLET PO SCH (08:32)
[2019-06-21] MEDS: HYDROCODONE/CHLORPHEN POLIS 10-8 MG/5 ML ORAL.SYG PO SCH ×2 (08:32→20:23)
[2019-06-21] MEDS: ISOSORBIDE MONONITRATE 60 MG ER TABLET PO SCH (08:32)
[2019-06-21] MEDS: ASPIRIN 81 MG CHEWABLE TABLET PO SCH (08:32)
[2019-06-21] MEDS: AmLODIPine BESYLATE 5 MG TABLET PO SCH (08:32)
[2019-06-21 08:33] LABS: GLUCOMETER DEV NAME(LOC) 5S.1; GLUCOSE,POINT OF CARE 78 MG/DL (70-110)
[2019-06-21 08:34] LABS: GLUCOMETER DEV NAME(LOC) 5S.1; GLUCOSE,POINT OF CARE 111 MG/DL (70-110)
[2019-06-21] MEDS: HEPARIN SODIUM,PORCINE 5,000 UNITS/ML VIAL SQ SCH ×2 (08:36→20:24)
[2019-06-21 10:13] LABS: ALBUMIN 2.1 g/dL (3.4-5.0); BILIRUBIN,TOTAL 0.8 mg/dL (0.1-1.0); CALCIUM, TOTAL 8.3 mg/dL (8.8-10.5); CREATININE 5.01 mg/dL (0.60-1.30); POTASSIUM 4.5 mmol/L (3.5-5.1); TOTAL PROTEIN, SERUM 6.5 g/dL (6.4-8.2)
[2019-06-21] MEDS: GuaiFENesin SR 600 MG ER TABLET PO SCH ×2 (12:15→22:51)
[2019-06-21 12:32] VITALS: BP 144/58
[2019-06-21 16:06] VITALS: BP 153/63
[2019-06-21 18:07] LABS: GLUCOMETER DEV NAME(LOC) 5S.2A; GLUCOSE,POINT OF CARE 158 MG/DL (70-110)
[2019-06-21] MEDS: ATORVASTATIN CALCIUM 20 MG TABLET PO SCH (20:24)
[2019-06-21] MEDS: LOSARTAN POTASSIUM 50 MG TABLET PO SCH (20:24)
[2019-06-21 20:52] LABS: GLUCOMETER DEV NAME(LOC) 5S.2A; GLUCOSE,POINT OF CARE 162 MG/DL (70-110)
[2019-06-21 21:30] VITALS: BP 100/57
[2019-06-21] MEDS: ZOLPIDEM TARTRATE 5 MG TABLET PO PRN (22:21)
[2019-06-21 23:32] LABS: GLUCOMETER DEV NAME(LOC) 5S.1; GLUCOSE,POINT OF CARE 168 MG/DL (70-110)
[2019-06-22 00:55] VITALS: BP 150/79
[2019-06-22] MEDS: PANTOPRAZOLE SODIUM 40 MG DR TABLET PO SCH (05:29)
[2019-06-22] MEDS: PIPERACILLIN SODIUM/TAZOBACTAM 2.25 GM in DEXTROSE 5%-WATER 50 ML IV SCH ×3 (05:29→20:10)
[2019-06-22 05:52] VITALS: BP 151/71
[2019-06-22 07:33] VITALS: BP 158/72
[2019-06-22 07:59] LABS: ALBUMIN 2.2 g/dL (3.4-5.0); CALCIUM, TOTAL 8.5 mg/dL (8.8-10.5); CREATININE 6.63 mg/dL (0.60-1.30); POTASSIUM 4.9 mmol/L (3.5-5.1); TOTAL PROTEIN, SERUM 6.8 g/dL (6.4-8.2)
[2019-06-22] MEDS: PIOGLITAZONE HCL 15 MG TABLET PO SCH (08:42)
[2019-06-22] MEDS: HYDROCODONE/CHLORPHEN POLIS 10-8 MG/5 ML ORAL.SYG PO SCH ×2 (08:42→20:10)
[2019-06-22] MEDS: HydrALAZINE HCL 50 MG TABLET PO SCH ×2 (08:43→20:11)
[2019-06-22] MEDS: FINASTERIDE 5 MG TABLET PO SCH (08:43)
[2019-06-22] MEDS: ASPIRIN 81 MG CHEWABLE TABLET PO SCH (08:43)
[2019-06-22] MEDS: AmLODIPine BESYLATE 5 MG TABLET PO SCH (08:43)
[2019-06-22] MEDS: CALCIUM ACETATE 667 MG CAPSULE PO SCH ×3 (08:44→17:03)
[2019-06-22] MEDS: ISOSORBIDE MONONITRATE 60 MG ER TABLET PO SCH (08:44)
[2019-06-22] MEDS: VITAMIN B COMP/VIT C/FOLIC ACID CAPSULE PO SCH (08:44)
[2019-06-22] MEDS: DOCUSATE SODIUM 250 MG CAPSULE PO SCH ×2 (08:44→20:11)
[2019-06-22] MEDS: SEVELAMER CARBONATE 800 MG TABLET PO SCH (08:44)
[2019-06-22] MEDS: HEPARIN SODIUM,PORCINE 5,000 UNITS/ML VIAL SQ SCH ×2 (08:45→20:11)
[2019-06-22] MEDS: -POST HEMODIALYSIS NOTE- MISC SCH (09:00)
[2019-06-22 11:51] VITALS: BP 160/75
[2019-06-22] MEDS: GuaiFENesin SR 600 MG ER TABLET PO SCH ×2 (12:02→22:51)
[2019-06-22 16:34] VITALS: BP 156/70
[2019-06-22] MEDS ORDERED: INSULIN LISPRO 100 UNITS/ML SQ PRN (18:00)
[2019-06-22] MEDS ORDERED: DEXTROSE 50%-WATER 25 GM/50 ML SYRINGE IVP PRN (18:00)
[2019-06-22] MEDS: PROMETHAZINE HCL 6.25 MG/5 ML SYRUP ORAL.SYG PO PRN (19:34)
[2019-06-22 19:52] LABS: GLUCOMETER DEV NAME(LOC) 5S.2A; GLUCOSE,POINT OF CARE 131 MG/DL (70-110)
[2019-06-22 19:52] LABS: GLUCOMETER DEV NAME(LOC) 5S.2A; GLUCOSE,POINT OF CARE 256 MG/DL (70-110)
[2019-06-22 19:52] LABS: GLUCOMETER DEV NAME(LOC) 5S.2A; GLUCOSE,POINT OF CARE 85 MG/DL (70-110)
[2019-06-22] MEDS: ATORVASTATIN CALCIUM 20 MG TABLET PO SCH (20:11)
[2019-06-22] MEDS: LOSARTAN POTASSIUM 50 MG TABLET PO SCH (20:13)
[2019-06-22 21:03] VITALS: BP 162/67
[2019-06-22] MEDS: ZOLPIDEM TARTRATE 5 MG TABLET PO PRN (22:51)
[2019-06-23 00:36] VITALS: BP 150/69
[2019-06-23] MEDS: PROMETHAZINE HCL 6.25 MG/5 ML SYRUP ORAL.SYG PO PRN (04:07)
[2019-06-23] MEDS: PIPERACILLIN SODIUM/TAZOBACTAM 2.25 GM in DEXTROSE 5%-WATER 50 ML IV SCH ×2 (04:12→13:22)
[2019-06-23] MEDS: BENZONATATE 100 MG CAPSULE PO PRN (04:23)
[2019-06-23] MEDS: PANTOPRAZOLE SODIUM 40 MG DR TABLET PO SCH (05:31)
[2019-06-23 05:38] LABS: GLUCOMETER DEV NAME(LOC) 5S.2A; GLUCOSE,POINT OF CARE 128 MG/DL (70-110)
[2019-06-23 05:45] VITALS: BP 164/72
[2019-06-23 05:53] LABS: GLUCOMETER DEV NAME(LOC) 5S.1; GLUCOSE,POINT OF CARE 98 MG/DL (70-110)
[2019-06-23 06:47] LABS: HEMATOCRIT 32.5 % (41-53); MEAN CORPUSCULAR HEMOGLOBIN 33.9 pg (26.0-34.0); MEAN CORPUSCULAR HGB CONC 33.7 G/dL (31.0-37.0); MEAN CORPUSCULAR VOLUME 101 fL (80-100); PLATELET COUNT (AUTO) 266 K/uL (150-450); RED BLOOD CELL COUNT(AUTO) 3.23 MIL/uL (4.50-5.90); RED CELL DISTRIBUTION WIDTH 21.2 % (11.5-14.5)
[2019-06-23 08:00] VITALS: BP 182/78
[2019-06-23] MEDS: ALBUTEROL SULFATE 2.5 MG/0.5 ML NEB SOLUTION NEB PRN (08:03)
[2019-06-23] MEDS: IPRATROPIUM BROMIDE 0.5 MG/2.5 ML NEB SOLUTION NEB PRN (08:03)
[2019-06-23] MEDS ORDERED: SODIUM CHLORIDE 0.9% 2,000 ML ONE (08:28)
[2019-06-23 08:52] LABS: BAND NEUTROPHILS % (MANUAL) 5 % (0-5); EOSINOPHILS % (MANUAL) 1 % (1-6); LYMPHOCYTES % (MANUAL) 12 % (22-44); MONOCYTES % (MANUAL) 10 % (2-9); MYELOCYTES % 1 % (0-0); SEGMENTED NEUTROPHILS % 71 % (40-70)
[2019-06-23] MEDS: -POST HEMODIALYSIS NOTE- MISC SCH (09:00)
[2019-06-23] MEDS: HEPARIN SODIUM,PORCINE 5,000 UNITS/ML VIAL SQ SCH (09:00)
[2019-06-23 11:38] VITALS: BP 172/71
[2019-06-23] MEDS: CALCIUM ACETATE 667 MG CAPSULE PO SCH ×2 (12:00→13:23)
[2019-06-23 12:21] LABS: GLUCOMETER DEV NAME(LOC) 5S.1; GLUCOSE,POINT OF CARE 126 MG/DL (70-110)
[2019-06-23] MEDS: PIOGLITAZONE HCL 15 MG TABLET PO SCH (13:22)
[2019-06-23] MEDS: HydrALAZINE HCL 50 MG TABLET PO SCH (13:22)
[2019-06-23] MEDS: FINASTERIDE 5 MG TABLET PO SCH (13:22)
[2019-06-23] MEDS: AmLODIPine BESYLATE 5 MG TABLET PO SCH (13:22)
[2019-06-23] MEDS: GuaiFENesin SR 600 MG ER TABLET PO SCH (13:22)
[2019-06-23] MEDS: VITAMIN B COMP/VIT C/FOLIC ACID CAPSULE PO SCH (13:22)
[2019-06-23] MEDS: ISOSORBIDE MONONITRATE 60 MG ER TABLET PO SCH (13:22)
[2019-06-23] MEDS: DOCUSATE SODIUM 250 MG CAPSULE PO SCH (13:23)
[2019-06-23] MEDS: SEVELAMER CARBONATE 800 MG TABLET PO SCH (13:23)
[2019-06-23] MEDS: ASPIRIN 81 MG CHEWABLE TABLET PO SCH (13:23)
[2019-06-23] MEDS: PIPERACILLIN SODIUM/TAZOBACTAM 0.75 GM in DEXTROSE 5%-WATER 50 ML IV PRN (13:23)
[2019-06-23] MEDS: HYDROCODONE/CHLORPHEN POLIS 10-8 MG/5 ML ORAL.SYG PO SCH (13:24)
[2019-06-23] MEDS ORDERED: BENZ-51 PO (13:48)
[2019-06-23] MEDS ORDERED: DOXY100C PO (13:50)
[2019-06-23] MEDS ORDERED: ALBU8.5H8 IH (13:52)
[2019-06-23] MEDS ORDERED: AMOX1TAB15 PO (13:56)
[2019-06-23] MEDS ORDERED: PROM6.2521 PO (13:57)
== END 2019-06-23 16:20 | disposition home or self-care (01) | DRG 871 ==
LOC: EMS 01:21 → 5S 04:47
PROVIDERS: ADMIT Internal Medicine; ATTEND Internal Medicine
PROC: 5A1D70Z Performance of Urinary Filtration, Intermittent, Less than 6 Hours Per Day (ICD-10-PCS; principal; 2019-06-15)
PROC: 5A1D70Z Performance of Urinary Filtration, Intermittent, Less than 6 Hours Per Day (ICD-10-PCS; 2019-06-16)
PROC: 5A1D70Z Performance of Urinary Filtration, Intermittent, Less than 6 Hours Per Day (ICD-10-PCS; 2019-06-18)
PROC: 5A1D70Z Performance of Urinary Filtration, Intermittent, Less than 6 Hours Per Day (ICD-10-PCS; 2019-06-20)
PROC: 5A1D70Z Performance of Urinary Filtration, Intermittent, Less than 6 Hours Per Day (ICD-10-PCS; 2019-06-23)
DX: A41.9 Sepsis, unspecified organism (principal); N18.6 End stage renal disease; I50.31 Acute diastolic (congestive) heart failure; J18.9 Pneumonia, unspecified organism; R18.8 Other ascites; J91.8 Pleural effusion in other conditions classified elsewhere; I13.2 Hypertensive heart and chronic kidney disease with heart failure and with stage 5 chronic kidney disease, or end stage renal disease; E87.1 Hypo-osmolality and hyponatremia; J44.0 Chronic obstructive pulmonary disease with (acute) lower respiratory infection; R91.1 Solitary pulmonary nodule; E78.5 Hyperlipidemia, unspecified; E78.00 Pure hypercholesterolemia, unspecified; I25.10 Atherosclerotic heart disease of native coronary artery without angina pectoris; I34.0 Nonrheumatic mitral (valve) insufficiency; E11.22 Type 2 diabetes mellitus with diabetic chronic kidney disease; M10.9 Gout, unspecified; Z87.891 Personal history of nicotine dependence; D64.9 Anemia, unspecified; Z99.2 Dependence on renal dialysis; Z99.81 Dependence on supplemental oxygen; Z82.49 Family history of ischemic heart disease and other diseases of the circulatory system
CPT/HCPCS: 71260; 74177; 83036; 83605; 84443; 87040; 87070; 87081; 87205; 87340; 87804; 93005; 93306; 94060; 94640; 94667; 99291; G0238; J1644; J1815; J2543; J3370; J7030; J7050; J7060

== ENCOUNTER 2019-06-27 15:39 | Inpatient (IN) | payer MEDICARE, OTHER ==
[~2019-06-27] VITALS: Ht 162.6 cm; Wt 60.0 kg
[2019-06-27] VITALS (7 sets, daily range): BP systolic 107–133; BP diastolic 42–55
[~2019-06-27 15:39] MED LIST changes: +AMOX1TAB15 PO; +DOXY100C PO; -PRED20 PO
[2019-06-27 16:34] LABS: BASOPHILS % (AUTO) 0.8 % (0.0-2.0); EOSINOPHILS % (AUTO) 0 % (1.0-6.0); LYMPHOCYTES # (AUTO) 0.9 K/uL (1.0-4.8); LYMPHOCYTES % (AUTO) 9.5 % (22.0-44.0); MEAN CORPUSCULAR HEMOGLOBIN 33.7 pg (26.0-34.0); MEAN CORPUSCULAR HGB CONC 33.3 G/dL (31.0-37.0); MEAN CORPUSCULAR VOLUME 101 fL (80-100); MONOCYTES # (AUTO) 0.4 K/uL (0.1-1.0); MONOCYTES % (AUTO) 4.7 % (2.0-9.0); NEUTROPHILS # (AUTO) 7.9 K/uL (1.8-7.7); PLATELET COUNT (AUTO) 372 K/uL (150-450); RED BLOOD CELL COUNT(AUTO) 1.65 MIL/uL (4.50-5.90); RED CELL DISTRIBUTION WIDTH 21.7 % (11.5-14.5)
[2019-06-27 16:46] LABS: HEMATOCRIT 16.7 % (41-53); HEMOGLOBIN 5.6 g/dL (13.5-17.5)
[2019-06-27 16:57] LABS: CALCIUM, TOTAL 8.9 mg/dL (8.8-10.5); CREATININE 2.57 mg/dL (0.60-1.30); POTASSIUM 3.9 mmol/L (3.5-5.1)
[2019-06-27 17:02] LABS: ALBUMIN 2.4 g/dL (3.4-5.0); BILIRUBIN,TOTAL 0.3 mg/dL (0.1-1.0); TOTAL PROTEIN, SERUM 7.1 g/dL (6.4-8.2)
[2019-06-27 17:06] LABS: TROPONIN I 0.07 ng/mL (0.00-0.05)
[2019-06-27 17:09] LABS: LACTIC ACID 0.9 mmol/L (0.4-2.0)
[2019-06-27] MEDS ORDERED: DiphenhydrAMINE HCL 25 MG CAPSULE PO ONE (17:15)
[2019-06-27] MEDS ORDERED: ONDANSETRON HCL 4 MG/2 ML VIAL IVP PRN (17:15)
[2019-06-27] MEDS ORDERED: FAMOTIDINE 10 MG/ML 2 ML VIAL IVP ONE (17:15)
[2019-06-27] MEDS ORDERED: ACETAMINOPHEN 500 MG TABLET PO ONE (17:15)
[2019-06-27] MEDS ORDERED: 0.9% SODIUM CHLORIDE 10 ML SYRINGE IVP PRN (17:15)
[2019-06-27] MEDS ORDERED: ACETAMINOPHEN 325 MG TABLET PO PRN (17:15)
[2019-06-27] MEDS ORDERED: PIPERACILLIN/TAZO 3.375 GM/D5W 50 ML IV ONE (17:45)
[2019-06-27] MEDS ORDERED: SODIUM CHLORIDE 0.9% 500 ML IV ONE (20:59)
[2019-06-28] VITALS (16 sets, daily range): BP systolic 116–188; BP diastolic 47–90
[2019-06-28 07:41] LABS: BASOPHILS % (AUTO) 1.2 % (0.0-2.0); EOSINOPHILS % (AUTO) 0.2 % (1.0-6.0); LYMPHOCYTES # (AUTO) 0.9 K/uL (1.0-4.8); LYMPHOCYTES % (AUTO) 10.1 % (22.0-44.0); MEAN CORPUSCULAR HEMOGLOBIN 31.6 pg (26.0-34.0); MEAN CORPUSCULAR HGB CONC 34.8 G/dL (31.0-37.0); MEAN CORPUSCULAR VOLUME 91 fL (80-100); MONOCYTES # (AUTO) 0.7 K/uL (0.1-1.0); MONOCYTES % (AUTO) 8.1 % (2.0-9.0); NEUTROPHILS # (AUTO) 7.1 K/uL (1.8-7.7); NEUTROPHILS % (AUTO) 80.4 % (40.0-70.0); PLATELET COUNT (AUTO) 307 K/uL (150-450); RED BLOOD CELL COUNT(AUTO) 2.02 MIL/uL (4.50-5.90); RED CELL DISTRIBUTION WIDTH 23.8 % (11.5-14.5)
[2019-06-28 07:45] LABS: HEMATOCRIT 18.4 % (41-53); HEMOGLOBIN 6.4 g/dL (13.5-17.5)
[2019-06-28] MEDS: HydrALAZINE HCL 50 MG TABLET PO SCH ×2 (09:00→21:36)
[2019-06-28] MEDS ORDERED: DOCUSATE SODIUM 250 MG CAPSULE PO SCH (09:00)
[2019-06-28] MEDS: ALBUTEROL SULFATE HFA 90 MCG/PUFF 8 GM INHALER IH SCH (09:00)
[2019-06-28] MEDS ORDERED: PROMETHAZINE HCL 6.25 MG/5 ML SYRUP ORAL.SYG PO PRN ×2 (09:00)
[2019-06-28] MEDS ORDERED: ALBUTEROL SULFATE HFA 90 MCG/PUFF 8 GM INHALER IH PRN (09:00)
[2019-06-28] MEDS ORDERED: DEXTROSE 50%-WATER 25 GM/50 ML SYRINGE IVP PRN (09:15)
[2019-06-28] MEDS: FINASTERIDE 5 MG TABLET PO SCH (10:19)
[2019-06-28] MEDS: GuaiFENesin SR 600 MG ER TABLET PO SCH (10:19)
[2019-06-28] MEDS: BENZONATATE 100 MG CAPSULE PO SCH ×3 (10:19→21:36)
[2019-06-28] MEDS: ASPIRIN 81 MG CHEWABLE TABLET PO SCH (10:19)
[2019-06-28] MEDS: VITAMIN B COMP/VIT C/FOLIC ACID CAPSULE PO SCH (10:19)
[2019-06-28] MEDS: INSULIN GLARGINE,HUM.REC.ANLOG 100 UNITS/ML SQ SCH (10:21)
[2019-06-28] MEDS ORDERED: SODIUM CHLORIDE 0.9% 250 ML IV ONE (10:28)
[2019-06-28] MEDS ORDERED: SODIUM CHLORIDE 0.9% 500 ML IV ONE (10:29)
[2019-06-28] MEDS ORDERED: PANTOPRAZOLE SODIUM 40 MG DR TABLET PO SCH (11:30)
[2019-06-28] MEDS ORDERED: ONDANSETRON HCL 4 MG/2 ML VIAL IVP PRN (11:30)
[2019-06-28] MEDS ORDERED: IPRATROPIUM BROMIDE 0.5 MG/2.5 ML NEB SOLUTION NEB PRN (11:30)
[2019-06-28] MEDS ORDERED: ZOLPIDEM TARTRATE 5 MG TABLET PO PRN (11:30)
[2019-06-28] MEDS ORDERED: ALBUTEROL SULFATE 2.5 MG/0.5 ML NEB SOLUTION NEB PRN (11:30)
[2019-06-28] MEDS ORDERED: ACETAMINOPHEN 325 MG TABLET PO PRN (11:30)
[2019-06-28] MEDS: HEPARIN SODIUM,PORCINE 5,000 UNITS/ML VIAL SQ SCH ×2 (11:30→21:00)
[2019-06-28] MEDS ORDERED: 0.9% SODIUM CHLORIDE 10 ML SYRINGE IVP PRN ×2 (11:30)
[2019-06-28 12:38] LABS: GLUCOMETER DEV NAME(LOC) 5N.2; GLUCOSE,POINT OF CARE 135 MG/DL (70-110)
[2019-06-28] MEDS: CALCIUM ACETATE 667 MG CAPSULE PO SCH ×2 (12:39→18:14)
[2019-06-28] MEDS: PIOGLITAZONE HCL 15 MG TABLET PO SCH (12:39)
[2019-06-28] MEDS: ISOSORBIDE MONONITRATE 60 MG ER TABLET PO SCH (12:40)
[2019-06-28] MEDS: PIPERACILLIN SODIUM/TAZOBACTAM 2.25 GM in DEXTROSE 5%-WATER 50 ML IV SCH ×2 (12:40→21:37)
[2019-06-28] MEDS: AmLODIPine BESYLATE 5 MG TABLET PO SCH (12:40)
[2019-06-28] MEDS: INSULIN LISPRO 100 UNITS/ML SQ PRN (12:41)
[2019-06-28] MEDS: DOCUSATE SODIUM 250 MG CAPSULE PO SCH ×2 (16:00→21:00)
[2019-06-28] MEDS ORDERED: SODIUM CHLORIDE 0.9% 2,000 ML ONE (16:13)
[2019-06-28 20:49] LABS: GLUCOMETER DEV NAME(LOC) 5N.2; GLUCOSE,POINT OF CARE 74 MG/DL (70-110)
[2019-06-28 21:21] LABS: GLUCOMETER DEV NAME(LOC) 5S.2A; GLUCOSE,POINT OF CARE 217 MG/DL (70-110)
[2019-06-28 21:21] LABS: GLUCOMETER DEV NAME(LOC) 5S.2A; GLUCOSE,POINT OF CARE 114 MG/DL (70-110)
[2019-06-28] MEDS: LOSARTAN POTASSIUM 50 MG TABLET PO SCH (21:36)
[2019-06-28] MEDS: ATORVASTATIN CALCIUM 20 MG TABLET PO SCH (21:36)
[2019-06-28 21:42] LABS: BASOPHILS % (AUTO) 0.9 % (0.0-2.0); EOSINOPHILS % (AUTO) 0.4 % (1.0-6.0); HEMATOCRIT 21.6 % (41-53); HEMOGLOBIN 7.4 g/dL (13.5-17.5); LYMPHOCYTES # (AUTO) 0.8 K/uL (1.0-4.8); MEAN CORPUSCULAR HEMOGLOBIN 31.3 pg (26.0-34.0); MEAN CORPUSCULAR HGB CONC 34.2 G/dL (31.0-37.0); MEAN CORPUSCULAR VOLUME 91 fL (80-100); MONOCYTES # (AUTO) 0.8 K/uL (0.1-1.0); MONOCYTES % (AUTO) 7.9 % (2.0-9.0); NEUTROPHILS # (AUTO) 7.9 K/uL (1.8-7.7); NEUTROPHILS % (AUTO) 82.8 % (40.0-70.0); PLATELET COUNT (AUTO) 310 K/uL (150-450); RED BLOOD CELL COUNT(AUTO) 2.37 MIL/uL (4.50-5.90); RED CELL DISTRIBUTION WIDTH 22.1 % (11.5-14.5)
[2019-06-28] MEDS: PANTOPRAZOLE SODIUM 80 MG in SODIUM CHLORIDE 0.9% 100 ML IV SCH (22:35)
[2019-06-29 01:44] VITALS: BP 125/55
[2019-06-29] MEDS: PIPERACILLIN SODIUM/TAZOBACTAM 2.25 GM in DEXTROSE 5%-WATER 50 ML IV SCH ×3 (03:19→17:53)
[2019-06-29 06:16] LABS: GLUCOMETER DEV NAME(LOC) 5S.2A; GLUCOSE,POINT OF CARE 83 MG/DL (70-110)
[2019-06-29 07:15] LABS: BASOPHILS % (AUTO) 0.9 % (0.0-2.0); EOSINOPHILS % (AUTO) 0.4 % (1.0-6.0); HEMATOCRIT 21.5 % (41-53); HEMOGLOBIN 7.2 g/dL (13.5-17.5); LYMPHOCYTES # (AUTO) 0.9 K/uL (1.0-4.8); LYMPHOCYTES % (AUTO) 10.3 % (22.0-44.0); MEAN CORPUSCULAR HEMOGLOBIN 31.1 pg (26.0-34.0); MEAN CORPUSCULAR HGB CONC 33.3 G/dL (31.0-37.0); MEAN CORPUSCULAR VOLUME 93 fL (80-100); MONOCYTES # (AUTO) 0.7 K/uL (0.1-1.0); MONOCYTES % (AUTO) 8.3 % (2.0-9.0); NEUTROPHILS # (AUTO) 6.8 K/uL (1.8-7.7); NEUTROPHILS % (AUTO) 80.1 % (40.0-70.0); PLATELET COUNT (AUTO) 311 K/uL (150-450); RED CELL DISTRIBUTION WIDTH 22.8 % (11.5-14.5)
[2019-06-29 07:20] LABS: HEMOGLOBIN A1C 5.3 % (4.5-6.2)
[2019-06-29 07:22] LABS: INR 1.1 (0.9-1.1); PROTHROMBIN TIME 10.9 SEC (9.4-11.6)
[2019-06-29] MEDS: PANTOPRAZOLE SODIUM 80 MG in SODIUM CHLORIDE 0.9% 100 ML IV SCH ×2 (07:22→18:01)
[2019-06-29 07:34] VITALS: BP 128/54
[2019-06-29 07:52] LABS: THYROID STIMULATING HORMONE 14.84 uIU/mL (0.36-3.74)
[2019-06-29] MEDS: ISOSORBIDE MONONITRATE 60 MG ER TABLET PO SCH (08:39)
[2019-06-29] MEDS: DOCUSATE SODIUM 250 MG CAPSULE PO SCH ×2 (08:39→20:48)
[2019-06-29] MEDS: PIOGLITAZONE HCL 15 MG TABLET PO SCH (08:40)
[2019-06-29] MEDS: CALCIUM ACETATE 667 MG CAPSULE PO SCH ×3 (08:40→16:31)
[2019-06-29] MEDS: HEPARIN SODIUM,PORCINE 5,000 UNITS/ML VIAL SQ SCH (08:40)
[2019-06-29] MEDS: BENZONATATE 100 MG CAPSULE PO SCH ×3 (08:40→20:43)
[2019-06-29] MEDS: FINASTERIDE 5 MG TABLET PO SCH (08:41)
[2019-06-29] MEDS: ASPIRIN 81 MG CHEWABLE TABLET PO SCH (08:41)
[2019-06-29] MEDS: VITAMIN B COMP/VIT C/FOLIC ACID CAPSULE PO SCH (08:41)
[2019-06-29] MEDS: SEVELAMER CARBONATE 800 MG TABLET PO SCH (08:41)
[2019-06-29] MEDS: GuaiFENesin SR 600 MG ER TABLET PO SCH (08:41)
[2019-06-29] MEDS: ALBUTEROL SULFATE HFA 90 MCG/PUFF 8 GM INHALER IH SCH (08:42)
[2019-06-29] MEDS: AmLODIPine BESYLATE 5 MG TABLET PO SCH (08:43)
[2019-06-29] MEDS: INSULIN GLARGINE,HUM.REC.ANLOG 100 UNITS/ML SQ SCH (08:46)
[2019-06-29] MEDS ORDERED: [UNRECOGNIZED DRUG - OTHER] PO SCH (09:00)
[2019-06-29 11:10] VITALS: BP 141/56
[2019-06-29 11:40] LABS: GLUCOMETER DEV NAME(LOC) 5S.2A; GLUCOSE,POINT OF CARE 95 MG/DL (70-110)
[2019-06-29] MEDS: HydrALAZINE HCL 50 MG TABLET PO SCH ×2 (12:12→20:43)
[2019-06-29] MEDS: LEVOTHYROXINE SODIUM 50 MCG TABLET PO SCH (12:12)
[2019-06-29] MEDS: SOD FERRIC GLUC COMPLX/SUCROSE 125 MG in SODIUM CHLORIDE 0.9% 100 ML IV SCH (13:11)
[2019-06-29 15:32] VITALS: BP 129/60
[2019-06-29 17:05] LABS: BASOPHILS % (AUTO) 1.1 % (0.0-2.0); EOSINOPHILS % (AUTO) 0.4 % (1.0-6.0); HEMATOCRIT 22.9 % (41-53); HEMOGLOBIN 7.6 g/dL (13.5-17.5); LYMPHOCYTES # (AUTO) 1.3 K/uL (1.0-4.8); LYMPHOCYTES % (AUTO) 11.5 % (22.0-44.0); MEAN CORPUSCULAR HEMOGLOBIN 31.3 pg (26.0-34.0); MEAN CORPUSCULAR HGB CONC 33.1 G/dL (31.0-37.0); MEAN CORPUSCULAR VOLUME 95 fL (80-100); MONOCYTES # (AUTO) 1.1 K/uL (0.1-1.0); MONOCYTES % (AUTO) 9.7 % (2.0-9.0); NEUTROPHILS # (AUTO) 8.5 K/uL (1.8-7.7); NEUTROPHILS % (AUTO) 77.3 % (40.0-70.0); PLATELET COUNT (AUTO) 340 K/uL (150-450); RED BLOOD CELL COUNT(AUTO) 2.43 MIL/uL (4.50-5.90); RED CELL DISTRIBUTION WIDTH 23.2 % (11.5-14.5)
[2019-06-29 17:53] LABS: GLUCOMETER DEV NAME(LOC) 5N.2; GLUCOSE,POINT OF CARE 188 MG/DL (70-110)
[2019-06-29] MEDS: INSULIN LISPRO 100 UNITS/ML SQ PRN ×2 (17:55→20:47)
[2019-06-29 20:34] LABS: GLUCOMETER DEV NAME(LOC) 5N.2; GLUCOSE,POINT OF CARE 215 MG/DL (70-110)
[2019-06-29] MEDS: ATORVASTATIN CALCIUM 20 MG TABLET PO SCH (20:43)
[2019-06-29] MEDS: LOSARTAN POTASSIUM 50 MG TABLET PO SCH (20:43)
[2019-06-29 21:03] VITALS: BP 149/67
[2019-06-30 00:59] VITALS: BP 126/45
[2019-06-30] MEDS: PIPERACILLIN SODIUM/TAZOBACTAM 2.25 GM in DEXTROSE 5%-WATER 50 ML IV SCH ×2 (03:24→11:09)
[2019-06-30] MEDS: PANTOPRAZOLE SODIUM 80 MG in SODIUM CHLORIDE 0.9% 100 ML IV SCH ×2 (05:23→13:38)
[2019-06-30 05:33] VITALS: BP 132/61
[2019-06-30] MEDS: LEVOTHYROXINE SODIUM 50 MCG TABLET PO SCH (05:45)
[2019-06-30 07:54] VITALS: BP 139/64
[2019-06-30] MEDS: CALCIUM ACETATE 667 MG CAPSULE PO SCH ×3 (08:10→17:02)
[2019-06-30] MEDS: SEVELAMER CARBONATE 800 MG TABLET PO SCH (08:10)
[2019-06-30] MEDS: ALBUTEROL SULFATE HFA 90 MCG/PUFF 8 GM INHALER IH SCH (08:10)
[2019-06-30] MEDS: PIOGLITAZONE HCL 15 MG TABLET PO SCH (08:12)
[2019-06-30] MEDS: VITAMIN B COMP/VIT C/FOLIC ACID CAPSULE PO SCH (08:12)
[2019-06-30] MEDS: HydrALAZINE HCL 50 MG TABLET PO SCH (08:12)
[2019-06-30] MEDS: GuaiFENesin SR 600 MG ER TABLET PO SCH (08:12)
[2019-06-30] MEDS: ISOSORBIDE MONONITRATE 60 MG ER TABLET PO SCH (08:12)
[2019-06-30] MEDS: DOCUSATE SODIUM 250 MG CAPSULE PO SCH (08:13)
[2019-06-30] MEDS: BENZONATATE 100 MG CAPSULE PO SCH ×2 (08:13→16:00)
[2019-06-30] MEDS: FINASTERIDE 5 MG TABLET PO SCH (08:13)
[2019-06-30] MEDS: AmLODIPine BESYLATE 5 MG TABLET PO SCH (08:13)
[2019-06-30] MEDS: INSULIN GLARGINE,HUM.REC.ANLOG 100 UNITS/ML SQ SCH (08:14)
[2019-06-30] MEDS ORDERED: EPOETIN ALFA 10,000 UNITS/ML VIAL SQ SCH (09:00)
[2019-06-30 10:12] LABS: BASOPHILS % (AUTO) 1.2 % (0.0-2.0); EOSINOPHILS % (AUTO) 0.7 % (1.0-6.0); HEMOGLOBIN 7.8 g/dL (13.5-17.5); LYMPHOCYTES # (AUTO) 1.1 K/uL (1.0-4.8); MEAN CORPUSCULAR HEMOGLOBIN 32.4 pg (26.0-34.0); MEAN CORPUSCULAR HGB CONC 34.1 G/dL (31.0-37.0); MEAN CORPUSCULAR VOLUME 95 fL (80-100); MONOCYTES # (AUTO) 0.9 K/uL (0.1-1.0); MONOCYTES % (AUTO) 10.1 % (2.0-9.0); PLATELET COUNT (AUTO) 343 K/uL (150-450); RED BLOOD CELL COUNT(AUTO) 2.42 MIL/uL (4.50-5.90); RED CELL DISTRIBUTION WIDTH 23.2 % (11.5-14.5)
[2019-06-30 10:34] LABS: BILIRUBIN,TOTAL 0.5 mg/dL (0.1-1.0); CALCIUM, TOTAL 7.6 mg/dL (8.8-10.5); CREATININE 5.52 mg/dL (0.60-1.30); POTASSIUM 4.2 mmol/L (3.5-5.1); TOTAL PROTEIN, SERUM 6.1 g/dL (6.4-8.2)
[2019-06-30 11:25] VITALS: BP 114/51
[2019-06-30] MEDS: SOD FERRIC GLUC COMPLX/SUCROSE 125 MG in SODIUM CHLORIDE 0.9% 100 ML IV SCH (11:48)
[2019-06-30] MEDS ORDERED: LEVO50 PO (13:30)
[2019-06-30] MEDS ORDERED: PANT40TA25 PO (13:31)
[2019-06-30 14:28] LABS: GLUCOMETER DEV NAME(LOC) 5N.2; GLUCOSE,POINT OF CARE 119 MG/DL (70-110)
[2019-06-30] MEDS ORDERED: SODIUM CHLORIDE 0.9% 1,000 ML ONE (16:05)
[2019-06-30 17:51] LABS: EOSINOPHILS % (AUTO) 0.8 % (1.0-6.0); HEMATOCRIT 22.2 % (41-53); HEMOGLOBIN 7.5 g/dL (13.5-17.5); LYMPHOCYTES % (AUTO) 10.9 % (22.0-44.0); MEAN CORPUSCULAR HGB CONC 33.9 G/dL (31.0-37.0); MEAN CORPUSCULAR VOLUME 95 fL (80-100); MONOCYTES % (AUTO) 10.9 % (2.0-9.0); NEUTROPHILS # (AUTO) 6.9 K/uL (1.8-7.7); NEUTROPHILS % (AUTO) 76.4 % (40.0-70.0); PLATELET COUNT (AUTO) 319 K/uL (150-450); RED BLOOD CELL COUNT(AUTO) 2.35 MIL/uL (4.50-5.90); RED CELL DISTRIBUTION WIDTH 22.9 % (11.5-14.5)
[2019-06-30 18:30] LABS: GLUCOMETER DEV NAME(LOC) 5N.2; GLUCOSE,POINT OF CARE 135 MG/DL (70-110)
[2019-06-30 18:31] LABS: GLUCOMETER DEV NAME(LOC) 5S.2A; GLUCOSE,POINT OF CARE 127 MG/DL (70-110)
[2019-06-30 18:31] LABS: GLUCOMETER DEV NAME(LOC) 5S.2A; GLUCOSE,POINT OF CARE 93 MG/DL (70-110)
[2019-06-30 20:31] VITALS: BP 119/59
== END 2019-06-30 21:20 | disposition home or self-care (01) | DRG 377 ==
LOC: EMS 15:39 → 5S 19:00
PROVIDERS: ADMIT Internal Medicine; ATTEND Internal Medicine
PROC: 30233N1 Transfusion of Nonautologous Red Blood Cells into Peripheral Vein, Percutaneous Approach (ICD-10-PCS; principal; 2019-06-27)
PROC: 5A1D70Z Performance of Urinary Filtration, Intermittent, Less than 6 Hours Per Day (ICD-10-PCS; 2019-06-28)
PROC: 5A1D70Z Performance of Urinary Filtration, Intermittent, Less than 6 Hours Per Day (ICD-10-PCS; 2019-06-30)
DX: K92.2 Gastrointestinal hemorrhage, unspecified (principal); N18.6 End stage renal disease; J18.9 Pneumonia, unspecified organism; I13.2 Hypertensive heart and chronic kidney disease with heart failure and with stage 5 chronic kidney disease, or end stage renal disease; E44.0 Moderate protein-calorie malnutrition; J44.0 Chronic obstructive pulmonary disease with (acute) lower respiratory infection; I50.42 Chronic combined systolic (congestive) and diastolic (congestive) heart failure; D64.9 Anemia, unspecified; R55 Syncope and collapse; E11.22 Type 2 diabetes mellitus with diabetic chronic kidney disease; D63.1 Anemia in chronic kidney disease; E11.40 Type 2 diabetes mellitus with diabetic neuropathy, unspecified; I25.10 Atherosclerotic heart disease of native coronary artery without angina pectoris; M10.9 Gout, unspecified; E78.00 Pure hypercholesterolemia, unspecified; E11.51 Type 2 diabetes mellitus with diabetic peripheral angiopathy without gangrene; E11.319 Type 2 diabetes mellitus with unspecified diabetic retinopathy without macular edema; E78.5 Hyperlipidemia, unspecified; Z99.2 Dependence on renal dialysis; Z86.73 Personal history of transient ischemic attack (TIA), and cerebral infarction without residual deficits; Z79.4 Long term (current) use of insulin; Z87.09 Personal history of other diseases of the respiratory system; Z87.891 Personal history of nicotine dependence; Z68.22 Body mass index [BMI] 22.0-22.9, adult; Z79.82 Long term (current) use of aspirin; Z79.899 Other long term (current) drug therapy
CPT/HCPCS: 71250; 82271; 83036; 83605; 84443; 86850; 86900; 86901; 86920; 87081; 87340; 93005; 96365; 99291; C9113; J0885; J1644; J1815; J2543; J2916; J3490; J3535; J7030; J7040; J7050; J7060; P9016

== ENCOUNTER 2019-07-24 05:46 | Day surgery (SDC) | payer MEDICARE, OTHER ==
[~2019-07-24] VITALS: Ht 162.6 cm; Wt 54.1 kg
[~2019-07-24 05:46] MED LIST changes: -AMOX1TAB15 PO; -ASPI-728 PO; -DOXY100C PO; +LEVO50 PO; +PANT40TA25 PO; +SODIUM CHLORIDE 0.9% 1,000 ML ONE
[2019-07-24] MEDS ORDERED: PROPOFOL 1% 20 ML VIAL IVP ONE (05:47)
[2019-07-24] MEDS ORDERED: SODIUM CHLORIDE 0.9% 1,000 ML IV ONE (06:00)
[2019-07-24 06:40] LABS: GLUCOMETER DEV NAME(LOC) SDS.; GLUCOSE,POINT OF CARE 97 MG/DL (70-110)
== END 2019-07-24 10:15 | disposition home or self-care (01) ==
LOC: SURGERY 05:46
PROVIDERS: ATTEND Internal Medicine Gastroenterology
DX: R19.5 Other fecal abnormalities (principal); K29.50 Unspecified chronic gastritis without bleeding; K64.8 Other hemorrhoids; E11.22 Type 2 diabetes mellitus with diabetic chronic kidney disease; I12.0 Hypertensive chronic kidney disease with stage 5 chronic kidney disease or end stage renal disease; N18.6 End stage renal disease; E11.40 Type 2 diabetes mellitus with diabetic neuropathy, unspecified; E11.21 Type 2 diabetes mellitus with diabetic nephropathy; E78.5 Hyperlipidemia, unspecified; D64.9 Anemia, unspecified; E66.3 Overweight; Z68.22 Body mass index [BMI] 22.0-22.9, adult; Z79.899 Other long term (current) drug therapy; Z83.3 Family history of diabetes mellitus
CPT/HCPCS: 43239; 45378; 82962; 88305; 88312; 88313; 93005; C1769; J2704; J7030

== ENCOUNTER 2020-03-04 07:11 | Day surgery (SDC) | payer MEDICARE, OTHER ==
[2020-03-02 10:12] LABS: COVID AG,FIA SOURCE NASOPHARYNGEAL
[~2020-03-04] VITALS: Ht 163.8 cm; Wt 60.0 kg
[~2020-03-04 07:11] MED LIST changes: +AMLO-257 PO; -AMLO5TAB9 PO; +CYCLOPENTOLATE HCL 1% 2 ML OPHTHALMIC SOLUTION ONE; -DOCU-342 PO; +DOCU-350 PO; +KETOROLAC TROMETHAMINE 0.5% 5 ML OPHTHALMIC SOLUTION ONE; -LOSA-88 PO; +LOSA50TA37 PO; +MOXIFLOXACIN HCL 0.5% 3 ML OPHTHALMIC SOLUTION ONE; +PANT-31 PO; -PANT40TA25 PO; +PHENYLEPHRINE HCL 2.5% 2 ML OPHTHALMIC SOLUTION ONE; +PROM5L PO; -PROM6.2521 PO; -SODIUM CHLORIDE 0.9% 1,000 ML ONE; +SODIUM CHLORIDE 0.9% 500 ML IV ONE; +TETRACAINE HCL/PF 0.5% 4 ML OPHTHALMIC SOLUTION ONE; +TROPICAMIDE 1% 2 ML OPHTHALMIC SOLUTION ONE
[2020-03-04] MEDS ORDERED: EPINEPHrine 1:1,000 [1 MG/ML] AMP IM ONE (07:12)
[2020-03-04] MEDS ORDERED: LIDOCAINE/PF 1% 2 ML VIAL IARTIC ONE (07:12)
[2020-03-04] MEDS ORDERED: POVIDONE-IODINE 10% 15 ML SOLUTION UD TP ONE (07:12)
[2020-03-04] MEDS ORDERED: MIDAZOLAM HCL 2 MG/2 ML VIAL IVP ONE (07:12)
[2020-03-04] MEDS ORDERED: PrednisoLONE ACETATE 1% 5 ML OPHTHALMIC SUSPENSION OD ONE (07:12)
[2020-03-04] MEDS ORDERED: HYALURONATE SODIUM 12 MG/ML 0.8 ML SYRINGE IO ONE (07:12)
[2020-03-04] MEDS ORDERED: HYALURONATE SOD/CHONDROITIN SOD 0.5 ML VIAL IO ONE (07:12)
[2020-03-04] MEDS ORDERED: FentaNYL CITRATE-PF 100 MCG/2 ML VIAL IVP ONE (07:12)
[2020-03-04] MEDS: MOXIFLOXACIN HCL 0.5% 3 ML OPHTHALMIC SOLUTION OD SCH ×3 (07:42→08:05)
[2020-03-04] MEDS: PHENYLEPHRINE HCL 2.5% 2 ML OPHTHALMIC SOLUTION OD SCH ×3 (07:42→08:05)
[2020-03-04] MEDS: CYCLOPENTOLATE HCL 1% 2 ML OPHTHALMIC SOLUTION OD SCH ×3 (07:43→08:05)
[2020-03-04] MEDS: TROPICAMIDE 1% 2 ML OPHTHALMIC SOLUTION OD SCH ×3 (07:43→08:05)
[2020-03-04] MEDS: KETOROLAC TROMETHAMINE 0.5% 5 ML OPHTHALMIC SOLUTION OD SCH ×3 (07:43→08:05)
[2020-03-04 08:07] LABS: GLUCOMETER DEV NAME(LOC) SDS.; GLUCOSE,POINT OF CARE 87 MG/DL (70-110)
[2020-03-04] MEDS ORDERED: TETRACAINE HCL/PF 0.5% 4 ML OPHTHALMIC SOLUTION OD ONE (08:45)
== END 2020-03-04 11:30 | disposition home or self-care (01) ==
LOC: SURGERY 07:11
PROVIDERS: ATTEND Ophthalmology Glaucoma Specialist
DX: H25.11 Age-related nuclear cataract, right eye (principal); E78.00 Pure hypercholesterolemia, unspecified; I10 Essential (primary) hypertension; Z87.891 Personal history of nicotine dependence; Z98.890 Other specified postprocedural states; Z20.828 Contact with and (suspected) exposure to other viral communicable diseases
CPT/HCPCS: 66982; 82962; 87426; 93005; C9803; J0171; J2250; J3010; J3490 ×2; V2632

== ENCOUNTER → 2020-04-29 | Day surgery (SDC) | payer MEDICARE, OTHER ==
[2020-04-27 13:31] LABS: COVID AG,FIA SOURCE NASOPHARYNGEAL
[~2020-04-29] MED LIST changes: +0.9% SODIUM CHLORIDE 10 ML SYRINGE IVP PRN; +EPINEPHrine 1:1,000 [1 MG/ML] AMP IM ONE; +FentaNYL CITRATE-PF 100 MCG/2 ML VIAL IVP ONE; +HYALURONATE SOD/CHONDROITIN SOD 0.5 ML VIAL IO ONE; +HYALURONATE SODIUM 12 MG/ML 0.8 ML SYRINGE IO ONE; +LIDOCAINE/PF 1% 2 ML VIAL IM ONE; +MIDAZOLAM HCL 2 MG/2 ML VIAL IVP ONE; +POVIDONE-IODINE 10% 15 ML SOLUTION UD TP ONE; +PrednisoLONE ACETATE 1% 5 ML OPHTHALMIC SUSPENSION OU ONE; +RINGERS SOLUTION,LACTATED 0 ML IV ONE; -TETRACAINE HCL/PF 0.5% 4 ML OPHTHALMIC SOLUTION ONE; +TETRACAINE HCL/PF 0.5% 4 ML OPHTHALMIC SOLUTION OU ONE
[2020-04-29] MEDS: CYCLOPENTOLATE HCL 1% 2 ML OPHTHALMIC SOLUTION OS SCH ×3 (07:48→08:08)
[2020-04-29] MEDS: TROPICAMIDE 1% 2 ML OPHTHALMIC SOLUTION OS SCH ×3 (07:49→08:08)
[2020-04-29] MEDS: KETOROLAC TROMETHAMINE 0.5% 5 ML OPHTHALMIC SOLUTION OS SCH ×3 (07:49→08:08)
[2020-04-29] MEDS: MOXIFLOXACIN HCL 0.5% 3 ML OPHTHALMIC SOLUTION OS SCH ×3 (07:49→08:08)
[2020-04-29] MEDS: PHENYLEPHRINE HCL 2.5% 2 ML OPHTHALMIC SOLUTION OS SCH ×3 (07:49→08:08)
[2020-04-29 07:55] LABS: GLUCOMETER DEV NAME(LOC) SDS.; GLUCOSE,POINT OF CARE 92 MG/DL (70-110)
[2020-04-30 10:37] LABS: GLUCOMETER DEV NAME(LOC) 5S.1; GLUCOSE,POINT OF CARE 153 MG/DL (70-110)
== END | disposition home or self-care (01) ==
LOC: SURGERY 06:52 → UNDOADMIN 21:18 → 5N 21:18
PROVIDERS: ATTEND Ophthalmology Glaucoma Specialist
DX: H25.12 Age-related nuclear cataract, left eye (principal); Z20.828 Contact with and (suspected) exposure to other viral communicable diseases
CPT/HCPCS: 66982; 82962; 87426; 93005; C9803; J0171; J2250; J3010; J3490 ×2; V2632; J7120

== ENCOUNTER 2020-06-06 23:58 | Inpatient (IN) | payer MEDICARE, OTHER ==
[~2020-06-06] VITALS: Ht 165.1 cm; Wt 65.4 kg
[~2020-06-06 23:58] MED LIST changes: -0.9% SODIUM CHLORIDE 10 ML SYRINGE IVP PRN; -CYCLOPENTOLATE HCL 1% 2 ML OPHTHALMIC SOLUTION ONE; -EPINEPHrine 1:1,000 [1 MG/ML] AMP IM ONE; -FentaNYL CITRATE-PF 100 MCG/2 ML VIAL IVP ONE; -HYALURONATE SOD/CHONDROITIN SOD 0.5 ML VIAL IO ONE; -HYALURONATE SODIUM 12 MG/ML 0.8 ML SYRINGE IO ONE; -KETOROLAC TROMETHAMINE 0.5% 5 ML OPHTHALMIC SOLUTION ONE; -LIDOCAINE/PF 1% 2 ML VIAL IM ONE; -MIDAZOLAM HCL 2 MG/2 ML VIAL IVP ONE; -MOXIFLOXACIN HCL 0.5% 3 ML OPHTHALMIC SOLUTION ONE; -PHENYLEPHRINE HCL 2.5% 2 ML OPHTHALMIC SOLUTION ONE; -POVIDONE-IODINE 10% 15 ML SOLUTION UD TP ONE; -PrednisoLONE ACETATE 1% 5 ML OPHTHALMIC SUSPENSION OU ONE; -RINGERS SOLUTION,LACTATED 0 ML IV ONE; -SODIUM CHLORIDE 0.9% 500 ML IV ONE; -TETRACAINE HCL/PF 0.5% 4 ML OPHTHALMIC SOLUTION OU ONE; -TROPICAMIDE 1% 2 ML OPHTHALMIC SOLUTION ONE
[2020-06-07 00:44] LABS: ABG A-A DIFF O2 180.2 mmHg (10-20.0); ABG BASE EXCESS 0.4 mmol/L (-2.0-3.0); ABG CARBOXYHEMOGLOBIN 0.8 % (0.0-1.5); ABG HCO3 24.8 mmol/L (22.0-26.0); ABG METHEMOGLOBIN 0.3 % (0.0-1.5); ABG OXYGEN CONTENT 13.9 mL/dL (15.0-23.0); ABG OXYGEN SATURATION 98.8 % (95.0-98.0); ABG OXYHEMOGLOBIN 97.7 % (94.0-100.0); ABG PCO2 42 mmHg (35-45); ABG TOTAL HEMOGLOBIN 9.1 G/dL (12.0-18.0); PO2, ARTERIAL BG 491.2 mmHg (75.0-83.0); SOURCE, BLOOD GAS ARTERIAL; TEMPERATURE, FAHRENHEIT, BG 98.6 FAHREN (96.0-98.6)
[2020-06-07 00:46] LABS: O2 DEVICE,BLOOD GAS BIPAP (ROOM AIR); SITE, BLOOD GAS LFT RADIAL
[2020-06-07 00:47] LABS: SPONTANEOUS VT, BG 765 ml; VENT MODE, BG BIPAP (ROOM AIR)
[2020-06-07 01:14] LABS: BASOPHILS % (AUTO) 0.5 % (0.0-2.0); EOSINOPHILS % (AUTO) 4.4 % (1.0-6.0); HEMATOCRIT 25.3 % (41-53); HEMOGLOBIN 8.4 g/dL (13.5-17.5); LYMPHOCYTES # (AUTO) 0.7 K/uL (1.0-4.8); LYMPHOCYTES % (AUTO) 10.3 % (22.0-44.0); MEAN CORPUSCULAR HEMOGLOBIN 35.6 pg (26.0-34.0); MEAN CORPUSCULAR HGB CONC 33.3 G/dL (31.0-37.0); MEAN CORPUSCULAR VOLUME 107 fL (80-100); MONOCYTES # (AUTO) 0.7 K/uL (0.1-1.0); MONOCYTES % (AUTO) 10.3 % (2.0-9.0); NEUTROPHILS # (AUTO) 5.2 K/uL (1.8-7.7); NEUTROPHILS % (AUTO) 74.5 % (40.0-70.0); PLATELET COUNT (AUTO) 183 K/uL (150-450); RED BLOOD CELL COUNT(AUTO) 2.36 MIL/uL (4.50-5.90); RED CELL DISTRIBUTION WIDTH 16.6 % (11.5-14.5)
[2020-06-07] MEDS ORDERED: CALCIUM GLUCONATE 0.465 MEQ/ML 10 ML VIAL IVP ONE (01:15)
[2020-06-07 01:28] LABS: INR 1.1 (0.9-1.1); PROTHROMBIN TIME 11.3 SEC (9.4-11.6)
[2020-06-07 01:30] LABS: CALCIUM, TOTAL 8.8 mg/dL (8.8-10.5); CREATININE 9.35 mg/dL (0.60-1.30); POTASSIUM 4.8 mmol/L (3.5-5.1)
[2020-06-07 02:01] LABS: ALBUMIN 3.6 g/dL (3.4-5.0); BILIRUBIN,TOTAL 0.5 mg/dL (0.1-1.0); TOTAL PROTEIN, SERUM 7.8 g/dL (6.4-8.2)
[2020-06-07] MEDS ORDERED: BUMETANIDE 0.25 MG/ML 4 ML VIAL IVP ONE (02:45)
[2020-06-07] MEDS ORDERED: ONDANSETRON HCL 4 MG/2 ML VIAL IVP PRN ×2 (03:00→14:00)
[2020-06-07] MEDS ORDERED: ACETAMINOPHEN 325 MG TABLET PO PRN ×2 (03:00→14:00)
[2020-06-07] MEDS ORDERED: 0.9% SODIUM CHLORIDE 10 ML SYRINGE IVP PRN ×3 (03:00→14:00)
[2020-06-07] MEDS ORDERED: ASPIRIN 81 MG CHEWABLE TABLET PO ONE (03:00)
[2020-06-07 03:13] LABS: COVID AG,FIA SOURCE NASOPHARYNGEAL
[2020-06-07 03:13] LABS: D-DIMER 1.1 mg/L FEU (0.00-0.50)
[2020-06-07 03:50] LABS: C-REACTIVE PROTEIN QUANT 1.2 mg/dL (0.00-0.30)
[2020-06-07 05:41] VITALS: BP 144/59
[2020-06-07 08:14] VITALS: BP 128/52
[2020-06-07 10:25] LABS: C-REACTIVE PROTEIN QUANT 2.77 mg/dL (0.00-0.30)
[2020-06-07] MEDS ORDERED: SODIUM CHLORIDE 0.9% 2,000 ML ONE (11:16)
[2020-06-07 11:32] VITALS: BP 133/57
[2020-06-07] MEDS ORDERED: SEVELAMER CARBONATE 800 MG TABLET PO SCH (14:00)
[2020-06-07] MEDS ORDERED: ALBUTEROL SULFATE 2.5 MG/0.5 ML NEB SOLUTION NEB PRN (14:00)
[2020-06-07] MEDS ORDERED: IPRATROPIUM BROMIDE 0.5 MG/2.5 ML NEB SOLUTION NEB PRN (14:00)
[2020-06-07] MEDS: DOCUSATE SODIUM 250 MG CAPSULE PO SCH ×2 (14:00→22:04)
[2020-06-07] MEDS ORDERED: MORPHINE SULFATE 2 MG/ML SYRINGE IVP PRN (14:00)
[2020-06-07] MEDS ORDERED: HYDROCODONE/ACETAMINOPHEN 5-325 MG TABLET PO PRN (14:00)
[2020-06-07] MEDS ORDERED: [UNRECOGNIZED DRUG - OTHER] PO SCH (14:00)
[2020-06-07] MEDS ORDERED: DEXTROSE 50%-WATER 25 GM/50 ML SYRINGE IVP PRN (14:15)
[2020-06-07] MEDS ORDERED: DOCUSATE SODIUM 250 MG CAPSULE PO SCH (16:00)
[2020-06-07 16:02] VITALS: BP 157/65
[2020-06-07] MEDS: BENZONATATE 100 MG CAPSULE PO SCH ×2 (16:29→23:25)
[2020-06-07] MEDS: GuaiFENesin SR 600 MG ER TABLET PO SCH ×2 (16:29→23:25)
[2020-06-07] MEDS: VITAMIN B COMP/VIT C/FOLIC ACID CAPSULE PO SCH (16:29)
[2020-06-07] MEDS: CefTRIAXone 1 GM/DEXTROSE 50 ML IV SCH (16:30)
[2020-06-07] MEDS: HEPARIN SODIUM,PORCINE 5,000 UNITS/ML VIAL SQ SCH ×2 (16:30→23:25)
[2020-06-07] MEDS ORDERED: SODIUM CHLORIDE 0.9% 500 ML IV ONE (16:32)
[2020-06-07] MEDS: INSULIN REGULAR, HUMAN 100 UNITS/ML SQ PRN (17:50)
[2020-06-07] MEDS: SEVELAMER CARBONATE 800 MG TABLET PO SCH (17:50)
[2020-06-07] MEDS ORDERED: CALCIUM ACETATE 667 MG CAPSULE PO SCH (18:00)
[2020-06-07 20:00] VITALS: BP 140/54
[2020-06-07] MEDS: BUDESONIDE 0.5 MG/2 ML NEB SOLUTION NEB SCH (21:00)
[2020-06-07] MEDS ORDERED: ATORVASTATIN CALCIUM 20 MG TABLET PO SCH (21:00)
[2020-06-07] MEDS: ATORVASTATIN CALCIUM 20 MG TABLET PO SCH (22:04)
[2020-06-07] MEDS: LOSARTAN POTASSIUM 50 MG TABLET PO SCH (22:04)
[2020-06-07] MEDS: HydrALAZINE HCL 50 MG TABLET PO SCH (22:04)
[2020-06-08] VITALS: BP 136/56
[2020-06-08 04:00] VITALS: BP 151/57
[2020-06-08] MEDS: LEVOTHYROXINE SODIUM 50 MCG TABLET PO SCH (05:28)
[2020-06-08] MEDS: PANTOPRAZOLE SODIUM 40 MG DR TABLET PO SCH (05:28)
[2020-06-08] MEDS: DOCUSATE SODIUM 250 MG CAPSULE PO SCH ×2 (08:28→21:04)
[2020-06-08] MEDS: AmLODIPine BESYLATE 5 MG TABLET PO SCH (08:28)
[2020-06-08] MEDS: VITAMIN B COMP/VIT C/FOLIC ACID CAPSULE PO SCH (08:28)
[2020-06-08] MEDS: EPOETIN ALFA 10,000 UNITS/ML VIAL SQ SCH (08:29)
[2020-06-08] MEDS: FINASTERIDE 5 MG TABLET PO SCH (08:29)
[2020-06-08] MEDS: HydrALAZINE HCL 50 MG TABLET PO SCH ×2 (08:29→21:04)
[2020-06-08] MEDS: PIOGLITAZONE HCL 15 MG TABLET PO SCH (08:29)
[2020-06-08] MEDS: HEPARIN SODIUM,PORCINE 5,000 UNITS/ML VIAL SQ SCH ×2 (08:29→21:03)
[2020-06-08] MEDS: BENZONATATE 100 MG CAPSULE PO SCH ×2 (08:29→16:04)
[2020-06-08] MEDS: ISOSORBIDE MONONITRATE 60 MG ER TABLET PO SCH (08:29)
[2020-06-08] MEDS: SEVELAMER CARBONATE 800 MG TABLET PO SCH ×3 (08:29→18:00)
[2020-06-08] MEDS: GuaiFENesin SR 600 MG ER TABLET PO SCH ×2 (08:29→21:04)
[2020-06-08] MEDS: INSULIN GLARGINE,HUM.REC.ANLOG 100 UNITS/ML SQ SCH (08:31)
[2020-06-08 08:46] VITALS: BP 146/63
[2020-06-08] MEDS: BUDESONIDE 0.5 MG/2 ML NEB SOLUTION NEB SCH ×2 (09:00→09:19)
[2020-06-08 11:51] VITALS: BP 127/50
[2020-06-08 13:05] LABS: GLUCOMETER DEV NAME(LOC) 5S.1; GLUCOSE,POINT OF CARE 124 MG/DL (70-110)
[2020-06-08] MEDS: CefTRIAXone 1 GM/DEXTROSE 50 ML IV SCH (16:04)
[2020-06-08 16:06] VITALS: BP 142/60
[2020-06-08 17:23] LABS: BASOPHILS % (AUTO) 0.6 % (0.0-2.0); EOSINOPHILS % (AUTO) 13.9 % (1.0-6.0); HEMATOCRIT 26.9 % (41-53); HEMOGLOBIN 8.6 g/dL (13.5-17.5); LYMPHOCYTES # (AUTO) 0.7 K/uL (1.0-4.8); LYMPHOCYTES % (AUTO) 20.7 % (22.0-44.0); MEAN CORPUSCULAR HEMOGLOBIN 34.6 pg (26.0-34.0); MEAN CORPUSCULAR VOLUME 108 fL (80-100); MONOCYTES # (AUTO) 0.4 K/uL (0.1-1.0); MONOCYTES % (AUTO) 12.7 % (2.0-9.0); NEUTROPHILS # (AUTO) 1.7 K/uL (1.8-7.7); NEUTROPHILS % (AUTO) 52.1 % (40.0-70.0); PLATELET COUNT (AUTO) 176 K/uL (150-450); RED BLOOD CELL COUNT(AUTO) 2.49 MIL/uL (4.50-5.90); RED CELL DISTRIBUTION WIDTH 17.7 % (11.5-14.5)
[2020-06-08 17:43] LABS: PROTHROMBIN TIME 10.9 SEC (9.4-11.6)
[2020-06-08 17:57] LABS: CHOL/HDL RATIO 2.2 (4.2-7.3); THYROID STIMULATING HORMONE 1.73 uIU/mL (0.36-3.74)
[2020-06-08 18:15] LABS: HEMOGLOBIN A1C 4.9 % (3.8-5.6)
[2020-06-08 20:45] VITALS: BP 152/69
[2020-06-08] MEDS: ZOLPIDEM TARTRATE 5 MG TABLET PO PRN (21:04)
[2020-06-08] MEDS: LOSARTAN POTASSIUM 50 MG TABLET PO SCH (21:04)
[2020-06-08] MEDS: ATORVASTATIN CALCIUM 20 MG TABLET PO SCH (21:04)
[2020-06-09 00:09] VITALS: BP 142/59
[2020-06-09] MEDS: BENZONATATE 100 MG CAPSULE PO SCH ×3 (00:48→16:17)
[2020-06-09 04:43] VITALS: BP 140/60
[2020-06-09] MEDS: LEVOTHYROXINE SODIUM 50 MCG TABLET PO SCH (05:38)
[2020-06-09] MEDS: PANTOPRAZOLE SODIUM 40 MG DR TABLET PO SCH (05:38)
[2020-06-09 08:23] VITALS: BP 166/66
[2020-06-09] MEDS: BUDESONIDE 0.5 MG/2 ML NEB SOLUTION NEB SCH ×2 (08:27→21:00)
[2020-06-09 08:51] LABS: BILIRUBIN,TOTAL 0.8 mg/dL (0.1-1.0); CALCIUM, TOTAL 8.4 mg/dL (8.8-10.5); CREATININE 7.91 mg/dL (0.60-1.30); POTASSIUM 4.1 mmol/L (3.5-5.1); TOTAL PROTEIN, SERUM 6.6 g/dL (6.4-8.2)
[2020-06-09] MEDS: HydrALAZINE HCL 50 MG TABLET PO SCH ×2 (09:00→21:04)
[2020-06-09] MEDS: AmLODIPine BESYLATE 5 MG TABLET PO SCH (09:22)
[2020-06-09] MEDS: PIOGLITAZONE HCL 15 MG TABLET PO SCH (09:22)
[2020-06-09] MEDS: FINASTERIDE 5 MG TABLET PO SCH (09:23)
[2020-06-09] MEDS: HEPARIN SODIUM,PORCINE 5,000 UNITS/ML VIAL SQ SCH ×2 (09:23→21:04)
[2020-06-09] MEDS: DOCUSATE SODIUM 250 MG CAPSULE PO SCH ×2 (09:23→21:04)
[2020-06-09] MEDS: GuaiFENesin SR 600 MG ER TABLET PO SCH ×2 (09:23→21:04)
[2020-06-09] MEDS: INSULIN GLARGINE,HUM.REC.ANLOG 100 UNITS/ML SQ SCH (09:26)
[2020-06-09] MEDS: SEVELAMER CARBONATE 800 MG TABLET PO SCH ×3 (09:29→18:00)
[2020-06-09] MEDS: VITAMIN B COMP/VIT C/FOLIC ACID CAPSULE PO SCH (09:29)
[2020-06-09 11:26] VITALS: BP 151/68
[2020-06-09] MEDS: ISOSORBIDE MONONITRATE 60 MG ER TABLET PO SCH (14:08)
[2020-06-09 15:10] VITALS: BP 147/66
[2020-06-09] MEDS ORDERED: ASPIRIN 325 MG TABLET PO ONE (16:00)
[2020-06-09] MEDS ORDERED: TICAGRELOR 90 MG TABLET PO ONE (16:00)
[2020-06-09] MEDS ORDERED: SODIUM CHLORIDE 0.9% 2,000 ML ONE (16:14)
[2020-06-09] MEDS: CefTRIAXone 1 GM/DEXTROSE 50 ML IV SCH (16:18)
[2020-06-09] MEDS ORDERED: SODIUM CHLORIDE 0.9% 100 ML ONE (16:21)
[2020-06-09 20:53] VITALS: BP 134/62
[2020-06-09] MEDS: LOSARTAN POTASSIUM 50 MG TABLET PO SCH (21:04)
[2020-06-09] MEDS: ATORVASTATIN CALCIUM 20 MG TABLET PO SCH (21:04)
[2020-06-09] MEDS: ZOLPIDEM TARTRATE 5 MG TABLET PO PRN (21:04)
[2020-06-10] VITALS (7 sets, daily range): BP systolic 106–153; BP diastolic 50–65
[2020-06-10] MEDS: BENZONATATE 100 MG CAPSULE PO SCH ×4 (00:19→23:29)
[2020-06-10] MEDS: LEVOTHYROXINE SODIUM 50 MCG TABLET PO SCH (05:33)
[2020-06-10] MEDS: PANTOPRAZOLE SODIUM 40 MG DR TABLET PO SCH (05:33)
[2020-06-10] MEDS: ISOSORBIDE MONONITRATE 60 MG ER TABLET PO SCH (09:07)
[2020-06-10] MEDS: EPOETIN ALFA 10,000 UNITS/ML VIAL SQ SCH (09:07)
[2020-06-10] MEDS: PIOGLITAZONE HCL 15 MG TABLET PO SCH (09:07)
[2020-06-10] MEDS: ASPIRIN 81 MG CHEWABLE TABLET PO SCH (09:07)
[2020-06-10] MEDS: HEPARIN SODIUM,PORCINE 5,000 UNITS/ML VIAL SQ SCH ×2 (09:07→20:39)
[2020-06-10] MEDS: TICAGRELOR 90 MG TABLET PO SCH ×2 (09:07→20:38)
[2020-06-10] MEDS: FINASTERIDE 5 MG TABLET PO SCH (09:08)
[2020-06-10] MEDS: HydrALAZINE HCL 50 MG TABLET PO SCH ×2 (09:08→20:38)
[2020-06-10] MEDS: SEVELAMER CARBONATE 800 MG TABLET PO SCH ×3 (09:08→18:09)
[2020-06-10] MEDS: VITAMIN B COMP/VIT C/FOLIC ACID CAPSULE PO SCH (09:08)
[2020-06-10] MEDS: GuaiFENesin SR 600 MG ER TABLET PO SCH ×2 (09:08→20:38)
[2020-06-10] MEDS: DOCUSATE SODIUM 250 MG CAPSULE PO SCH ×2 (09:08→20:38)
[2020-06-10] MEDS: AmLODIPine BESYLATE 5 MG TABLET PO SCH (09:08)
[2020-06-10] MEDS: INSULIN GLARGINE,HUM.REC.ANLOG 100 UNITS/ML SQ SCH (09:12)
[2020-06-10] MEDS: BUDESONIDE 0.5 MG/2 ML NEB SOLUTION NEB SCH ×2 (09:25→20:46)
[2020-06-10 11:22] LABS: ALBUMIN 2.9 g/dL (3.4-5.0); BILIRUBIN,TOTAL 0.7 mg/dL (0.1-1.0); CALCIUM, TOTAL 8.7 mg/dL (8.8-10.5); CREATININE 4.75 mg/dL (0.60-1.30); POTASSIUM 4.2 mmol/L (3.5-5.1); TOTAL PROTEIN, SERUM 6.8 g/dL (6.4-8.2)
[2020-06-10] MEDS: CefTRIAXone 1 GM/DEXTROSE 50 ML IV SCH (15:22)
[2020-06-10] MEDS: LOSARTAN POTASSIUM 50 MG TABLET PO SCH (20:38)
[2020-06-10] MEDS: ZOLPIDEM TARTRATE 5 MG TABLET PO PRN (20:38)
[2020-06-10] MEDS: ATORVASTATIN CALCIUM 20 MG TABLET PO SCH (20:39)
[2020-06-10] MEDS: INSULIN REGULAR, HUMAN 100 UNITS/ML SQ PRN (20:42)
[2020-06-11 03:45] VITALS: BP 140/53
[2020-06-11] MEDS: LEVOTHYROXINE SODIUM 50 MCG TABLET PO SCH (05:31)
[2020-06-11] MEDS: PANTOPRAZOLE SODIUM 40 MG DR TABLET PO SCH (05:31)
[2020-06-11 07:14] LABS: BILIRUBIN,TOTAL 0.8 mg/dL (0.1-1.0); CALCIUM, TOTAL 9.1 mg/dL (8.8-10.5); CREATININE 6.6 mg/dL (0.60-1.30); POTASSIUM 4.3 mmol/L (3.5-5.1); TOTAL PROTEIN, SERUM 6.8 g/dL (6.4-8.2)
[2020-06-11] MEDS: INSULIN GLARGINE,HUM.REC.ANLOG 100 UNITS/ML SQ SCH (07:55)
[2020-06-11] MEDS: HEPARIN SODIUM,PORCINE 5,000 UNITS/ML VIAL SQ SCH (07:57)
[2020-06-11] MEDS: SEVELAMER CARBONATE 800 MG TABLET PO SCH ×2 (08:00→14:47)
[2020-06-11 08:07] VITALS: BP 150/69
[2020-06-11] MEDS: BUDESONIDE 0.5 MG/2 ML NEB SOLUTION NEB SCH (09:14)
[2020-06-11] MEDS ORDERED: SODIUM CHLORIDE 0.9% 2,000 ML ONE (09:43)
[2020-06-11 11:13] VITALS: BP 179/80
[2020-06-11] MEDS: HydrALAZINE HCL 50 MG TABLET PO SCH (14:46)
[2020-06-11] MEDS: BENZONATATE 100 MG CAPSULE PO SCH ×2 (14:46→16:00)
[2020-06-11] MEDS: GuaiFENesin SR 600 MG ER TABLET PO SCH (14:46)
[2020-06-11] MEDS: DOCUSATE SODIUM 250 MG CAPSULE PO SCH (14:46)
[2020-06-11] MEDS: TICAGRELOR 90 MG TABLET PO SCH (14:46)
[2020-06-11] MEDS: FINASTERIDE 5 MG TABLET PO SCH (14:46)
[2020-06-11] MEDS: ASPIRIN 81 MG CHEWABLE TABLET PO SCH (14:46)
[2020-06-11] MEDS: AmLODIPine BESYLATE 5 MG TABLET PO SCH (14:46)
[2020-06-11] MEDS: VITAMIN B COMP/VIT C/FOLIC ACID CAPSULE PO SCH (14:47)
[2020-06-11] MEDS: PIOGLITAZONE HCL 15 MG TABLET PO SCH (14:47)
[2020-06-11] MEDS: ISOSORBIDE MONONITRATE 60 MG ER TABLET PO SCH (14:47)
[2020-06-11 16:00] VITALS: BP 139/52
[2020-06-11] MEDS: CefTRIAXone 1 GM/DEXTROSE 50 ML IV SCH (16:00)
== END 2020-06-11 17:45 | disposition home or self-care (01) | DRG 291 ==
LOC: EMS 06-07 00:02 → 5S 06-07 03:30
PROVIDERS: ADMIT Internal Medicine; ATTEND Internal Medicine
PROC: 5A09357 Assistance with Respiratory Ventilation, Less than 24 Consecutive Hours, Continuous Positive Airway Pressure (ICD-10-PCS; principal; 2020-06-07)
DX: I13.2 Hypertensive heart and chronic kidney disease with heart failure and with stage 5 chronic kidney disease, or end stage renal disease (principal); I50.43 Acute on chronic combined systolic (congestive) and diastolic (congestive) heart failure; N18.6 End stage renal disease; J96.90 Respiratory failure, unspecified, unspecified whether with hypoxia or hypercapnia; J45.901 Unspecified asthma with (acute) exacerbation; J91.8 Pleural effusion in other conditions classified elsewhere; J98.11 Atelectasis; E03.9 Hypothyroidism, unspecified; E11.22 Type 2 diabetes mellitus with diabetic chronic kidney disease; E78.5 Hyperlipidemia, unspecified; J44.9 Chronic obstructive pulmonary disease, unspecified; I25.10 Atherosclerotic heart disease of native coronary artery without angina pectoris; Z98.42 Cataract extraction status, left eye; M10.9 Gout, unspecified; Z99.2 Dependence on renal dialysis; D63.8 Anemia in other chronic diseases classified elsewhere; Z91.15 Patient's noncompliance with renal dialysis; I25.2 Old myocardial infarction; E87.5 Hyperkalemia; E87.70 Fluid overload, unspecified; Z82.49 Family history of ischemic heart disease and other diseases of the circulatory system; Z87.891 Personal history of nicotine dependence; Z95.5 Presence of coronary angioplasty implant and graft; E78.00 Pure hypercholesterolemia, unspecified; Z20.822 Contact with and (suspected) exposure to COVID-19; Z91.19 Patient's noncompliance with other medical treatment and regimen
CPT/HCPCS: 36600; 82728; 82805; 83036; 83605; 83615; 84145; 84443; 85379; 86140; 87040; 87081; 87340; 87426; 93005; 93306; 94640; 94660; 97116; 97163; 97530; 99291; G0378; J0610; J0696; J0885; J1644; J1815; J3490; J7030; J7040; J7050; 36415-L1; 36415-TC; 71045-TC; 80061-TC; J7613; U0003